=== PATIENT | female | born 1975 | race Caucasian/White ===

== ENCOUNTER 2021-10-08 12:04 | Inpatient (IN) ==
--- NOTE | 2021-09-27 16:18 | PAT Medication Instructions ---
Medication Instructions Date of Service September 27, 2021 Home Medications aripiprazole 10 mg tablet (Abilify) 10 mg PO DAILY bisacodyl 10 mg rectal suppository 10 mg IN DAILY PRN bisacodyl 5 mg tablet,delayed release 10 mg PO DAILY PRN calcium carb-ergocalciferol (vit D2) 600 mg calcium-200 unit tablet 1 tab PO BID docusate sodium 100 mg tablet 100 mg PO BID famotidine 10 mg tablet 20 mg PO DAILY fluoxetine 10 mg tablet 10 mg PO DAILY lacosamide 100 mg tablet 100 mg PO BID magnesium hydroxide 400 mg/5 mL oral suspension (Milk of Magnesia) 30 ml PO DAILY PRN melatonin 3 mg tablet 3 mg PO HS mirtazapine 7.5 mg tablet 7.5 mg PO HS omeprazole 20 mg tablet,delayed release 20 mg PO QAM ondansetron HCl 4 mg tablet 4 mg PO Q6H PRN polyethylene glycol 3350 17 gram/dose oral powder (Miralax) 17 g PO DAILY sennosides 8.6 mg-docusate sodium 50 mg tablet (Senna-S) 1 tab-cap PO BID Continue as directed aripiprazole 10 mg tablet (Abilify) 10 mg PO DAILY famotidine 10 mg tablet 20 mg PO DAILY fluoxetine 10 mg tablet 10 mg PO DAILY ondansetron HCl 4 mg tablet 4 mg PO Q6H PRN(if needed) DO NOT take the morning of surgery bisacodyl 10 mg rectal suppository 10 mg IN DAILY PRN bisacodyl 5 mg tablet,delayed release 10 mg PO DAILY PRN calcium carb-ergocalciferol (vit D2) 600 mg calcium-200 unit tablet 1 tab PO BID docusate sodium 100 mg tablet 100 mg PO BID magnesium hydroxide 400 mg/5 mL oral suspension (Milk of Magnesia) 30 ml PO DAILY PRN polyethylene glycol 3350 17 gram/dose oral powder (Miralax) 17 g PO DAILY sennosides 8.6 mg-docusate sodium 50 mg tablet (Senna-S) 1 tab-cap PO BID Take morning of surgery With a small sip of water, OTHERWISE NOTHING TO EAT OR DRINK AFTER MIDNIGHT: lacosamide 100 mg tablet 100 mg PO BID omeprazole 20 mg tablet,delayed release 20 mg PO QAM Take evening before surgery calcium carb-ergocalciferol (vit D2) 600 mg calcium-200 unit tablet 1 tab PO BID docusate sodium 100 mg tablet 100 mg PO BID lacosamide 100 mg tablet 100 mg PO BID melatonin 3 mg tablet 3 mg PO HS mirtazapine 7.5 mg tablet 7.5 mg PO HS sennosides 8.6 mg-docusate sodium 50 mg tablet (Senna-S) 1 tab-cap PO BID Other Notes If you have any questions please call us at [phone] or [phone] or [phone] or [phone]
--- NOTE | 2021-10-03 13:23 | Anesthesiology Consultation ---
Date of Service October 03, 2021 Assessment & Plan (1) Encounter for pre-operative examination: - awaiting pre-op testing and attending provider pre-op note. - Significant transportation limitations, pt unable to keep PAT appt. Per Yara at long term facility they can obtain all pre-op testing including CBC with diff, BMP, UA with urine culture and sensitivity, EKG and 2 view CXR. She states they will obtain PCR COVID test 10/04/2021 which is sent out to [facility] and she states would be completed in time for surgery 10/08/2021. Reviewed with anesthesia team and if COVID is pending, will do rapid test am DOS. She advised patient has not been seen by attending provider recently and will set this up prior to surgery, aware we will need notation if chronic conditions are stable and if patient is acceptable risk to proceed with surgery. - COVID screening: Per manager assessment on 09/27/2021: Travel screen negative, no known COVID-19 positive contacts or current COVID-19 related symptoms in past 2 weeks. Patient vaccinated. Surgeon arranging preop COVID testing, scheduled 10/04/2021. Awaiting results. Chart Review Chart Review: Pending: Refer to Additional Notes / Consult section and Patient NOT seen in Pre Admission Testing History Surgery Operation Date: 10/08/21 14:20 Proposed Procedures p Cystoscopy, Ureteronephroscopy, Retrograde Pyelogram with possible Ureteral Dilation, Laser Destruction or Extraction of the Stone, Insertion or Exchange of Stent Catheter - Davy Tyler, DO Height/Weight Height: 5 ft 5 in Weight: 98.458 kg Allergies Allergy/AdvReac Type Severity Reaction Status Date / Time acetaminophen Allergy Unknown Unknown Verified 09/27/21 11:33 clindamycin Allergy Unknown Unknown Verified 09/27/21 11:33 Medications Home Medications Medication Instructions Recorded Confirmed Last Taken aripiprazole 10 mg tablet (Abilify) 10 mg PO DAILY 09/27/21 09/27/21 Unknown bisacodyl 10 mg rectal suppository 10 mg DC DAILY PRN 09/27/21 09/27/21 Unknown bisacodyl 5 mg tablet,delayed 10 mg PO DAILY PRN 09/27/21 09/27/21 Unknown release calcium carb-ergocalciferol (vit 1 tab PO BID 09/27/21 09/27/21 Unknown D2) 600 mg calcium-200 unit tablet docusate sodium 100 mg tablet 100 mg PO BID 09/27/21 09/27/21 Unknown famotidine 10 mg tablet 20 mg PO DAILY 09/27/21 09/27/21 Unknown fluoxetine 10 mg tablet 10 mg PO DAILY 09/27/21 09/27/21 Unknown lacosamide 100 mg tablet 100 mg PO BID 09/27/21 09/27/21 Unknown magnesium hydroxide 400 mg/5 mL 30 ml PO DAILY PRN 09/27/21 09/27/21 Unknown oral suspension (Milk of Magnesia) melatonin 3 mg tablet 3 mg PO HS 09/27/21 09/27/21 Unknown mirtazapine 7.5 mg tablet 7.5 mg PO HS 09/27/21 09/27/21 Unknown omeprazole 20 mg tablet,delayed 20 mg PO QAM 09/27/21 09/27/21 Unknown release ondansetron HCl 4 mg tablet 4 mg PO Q6H PRN 09/27/21 09/27/21 Unknown polyethylene glycol 3350 17 17 g PO DAILY 09/27/21 09/27/21 Unknown gram/dose oral powder (Miralax) sennosides 8.6 mg-docusate sodium 1 tab-cap PO BID 09/27/21 09/27/21 Unknown 50 mg tablet (Senna-S) Past Medical History Medical History Dysphagia GERD (gastroesophageal reflux disease) Hyperosmolality and hypernatremia Impulsiveness Insomnia Lack of coordination Major depressive disorder Morbid obesity Obstructive and reflux uropathy Other seizures Resides in [facility] facility [place] Past Family History Family History Other Family history unknown Past Surgical History Surgical History S/P cystoscopy with ureteral stent placement Social History Smoking Status: Unknown if ever smoked Testing Other Testing Abdomen and pelvis CT 10/02/2021 Lung bases: The heart is normal in size and without pericardial effusion. The lung bases are clear noting dependent atelectasis. Liver: The unenhanced liver is normal in size, contour, and attenuation. There is no intrahepatic biliary ductal dilatation. Gallbladder: There are calcified gallstones in the region of the gallbladder neck with no CT evidence of acute cholecystitis. Spleen: Normal in size and attenuation. There is a calcified splenic granuloma. Kidneys: The unenhanced kidneys demonstrate mild cortical atrophy and are without hydronephrosis. A right ureteral stent is in place. No calcifications are identified in the right ureter along the course of the stent. There is mild urothelial thickening of the right ureter with surrounding infiltration. There are least 2 tiny stones/fragments in the lower pole of the right kidney. There are at least 4 nonobstructing left renal calculi which measure up to 4 mm. No left ureteral stone is seen. There is no evidence of contour deforming renal mass lesion. A retroaortic left renal vein is incidentally noted. Abdominal vasculature: The abdominal aorta is normal in course and caliber noting scattered foci of atherosclerotic calcification. Bowel: There is no bowel obstruction. Mild fecal retention is seen throughout the colon. The appendix is well-visualized and normal. Pelvic viscera: The bladder is decompressed and grossly unremarkable. The uterus and adnexa are normal as visualized. Skeletal structures: The skeletal structures are osteopenic. There is mild lumbosacral spondylosis. No lytic or blastic lesions are seen. IMPRESSION: 1. A right ureteral stent is in place. No calcifications are seen along the course of the stent and there is no right-sided hydronephrosis. 2. Bilateral nephrolithiasis as above. 3. Urothelial thickening of the right ureter with mild surrounding infiltration is nonspecific and likely related to the presence of an indwelling stent. Correlate with clinical findings and urinalysis. 4. Cholelithiasis. 5. Additional findings as above.
[~2021-10-08 12:04] MED LIST: CIPROFLOXACIN / D5W 400 MG/200 ML BAG IV SCH; LR 15ML/HR IV SCH
--- NOTE | 2021-10-08 12:15 | History & Physical Bridge Note ---
Date of Service October 08, 2021 History & Physical Bridge Note I have examined the patient, reviewed the History & Physical and in the interval since the performance of the History & Physical I have noted the following changes of clinical significance: no changes noted
[2021-10-08 13:24] LABS: Pregnancy Test, Serum Negative (Negative)
--- NOTE | 2021-10-08 14:21 | Electrocardiogram Report ---
Test Reason : Blood Pressure : / mmHG Vent. Rate : 111 BPM Atrial Rate : 111 BPM P-R Int : 128 ms QRS Dur : 072 ms QT Int : 348 ms P-R-T Axes : 009 -15 027 degrees QTc Int : 473 ms Sinus tachycardia Nonspecific ST abnormality No previous ECGs available Confirmed by Darien Rasmussen ([id number]) on 10/08/2021 2:20:45 PM Referred By: Davy Tyler Confirmed By:Mookie Rasmussen
[2021-10-08] MEDS ORDERED: fentaNYL citrate 100 MCG/2 ML VIAL ONE (14:29)
[2021-10-08] MEDS ORDERED: PROPOFOL IV EMULSION 10 MG/ML 20 ML VIAL IV ONE (14:32)
[2021-10-08] MEDS ORDERED: ONDANSETRON INJ 2 MG/ML 2 ML VIAL ONE ×2 (14:32→15:20)
[2021-10-08] MEDS ORDERED: KETOROLAC TROMETHAMINE 15 MG/ML VIAL IV PRN (15:15)
[2021-10-08] MEDS ORDERED: HYDROmorphone INJ 1 MG/ML SYRINGE IV PRN (15:15)
[2021-10-08] MEDS ORDERED: PHENAZOPYRIDINE HCL 200 MG TAB PO PRN (15:15)
[2021-10-08] MEDS ORDERED: ONDANSETRON INJ 2 MG/ML 2 ML VIAL IV PRN ×2 (15:15)
[2021-10-08] MEDS ORDERED: fentaNYL citrate 100 MCG/2 ML VIAL IV PRN (15:15)
[2021-10-08] MEDS ORDERED: ePHEDrine sulfate 50 MG/ML AMP IV PRN (15:15)
[2021-10-08] MEDS ORDERED: ATROPINE SULFATE 0.1 MG/ML 10ML SYR IV PRN (15:15)
[2021-10-08] MEDS ORDERED: oxyCODONE HCL IR 5 MG TAB (IMMEDIATE RELEASE) PO PRN (15:15)
[2021-10-08] MEDS ORDERED: bisacodyL 5 MG TABEC PO PRN (15:21)
[2021-10-08] MEDS ORDERED: bisacodyL 10 MG SUPP PR PRN (15:21)
[2021-10-08] MEDS ORDERED: MAGNESIUM HYDROXIDE SUSP 30 ML UDC PO PRN (15:21)
[2021-10-08] MEDS ORDERED: ONDANSETRON 4 MG OD TAB PO PRN (15:35)
[2021-10-08] MEDS ORDERED: ceFAZolin 330 MG/ML 1 GM VIAL ONE (15:50)
[2021-10-08] MEDS ORDERED: ceFAZolin 2000MG 2,000 MG/15 ML SYR IV ONE (16:00)
[2021-10-08] MEDS ORDERED: DIATRIZOATE MEGLUMINE 30% 100ML VIAL INSTIL PRN (16:02)
--- NOTE | 2021-10-08 16:02 | Operative Report ---
PG Post Operative Report Pre & Post Diagnosis Obstructing Stone Right Same Operation Date: 10/08/21 14:20 <No data on this case meets the specified criteria> I identified the patient and participated in the time-out.: Yes Procedure Operation Date: 10/08/21 14:20 Actual Procedures p Cystoscopy, Right Retrograde Pyelogram , Extraction of encrusted right ureteral stent, and Right Ureteral Stent Insertion (Not Applicable) - Davy Tyler, Surgeon Davy Tyler, II, DO Test Man None Estimated Blood Loss 1 Findings Consistent with Post-Op Diagnosis Severely calcified stent on right. Stone in bladder destroyed and removed. R etained stent removed. Urine from pelvis was aspirated. New Stent placed in good position. Specimens Urine right renal pelvis Drains 6 Fr x 24 Anesthesia Type MAC Complications none Disposition Disposition: Recovery Room Indications Patient with obstruction. Was to have stone treatment with retained stent, however patient became increasingly ill throughout day and developed early signs of pyelonephritis and SIRS. Risks and benefits discussed at length. Description of Procedure Patient was consented and brought back to the operating room. Patient was placed under anesthesia in the supine position and moved to the dorsal lithotomy position. Patient was prepped and draped in the regular sterile fashion. A time out was completed. A 30degree Cystoscope was placed into the bladder and the entire bladder was examined. The UO's were identified. The calcified stent was assessed. The grasper was used to destroy the encrusted stone and the debris was irrigated. The stent was then grasped and partially removed. The UO was cannulized with a catheter and a wire was placed. The stent was then fully removed and the catheter placed into the renal pelvis. Urine was aspirated and sent for culture. At this point, a retrograde pyelogram was completed. A wire was then placed. With the wire in place, a 6 Fr Double J stent was placed. It was confirmed with fluoroscopy. With the stent in place, the bladder was emptied. The scope was removed. The patient was cleaned, aroused from anesthesia, and transferred to the pacu in stable condition having tolerated the procedure well with no complications. I was present and participated in all aspects of the procedure. The patient will be monitored in the PACU until transferred. Plan to observe patient overnight due to concern about preoperative illness with retained stent and development of pyelonephritis. Will likely need stone treatment once recovers from acute issue. I attest to the content of the Intraoperative Record and any orders documented therein. Any exceptions are noted below.
--- NOTE | 2021-10-08 16:08 | Fluoroscopy Report ---
FL retrograde includes kub CLINICAL HISTORY: RT CYSTO, STENT TECHNIQUE: 6 views were obtained with the C-arm in the OR with the above procedure. Total fluoroscopy time was 32.4 seconds. Total skin dose was 9.42 mGy. Comparison: Comparison is made to CT abdomen pelvis 10/02/2021 FINDINGS/IMPRESSION: Intraoperative images were obtained of right cystogram and stent placement Please correlate with intraoperative fluoroscopy and operative report. ACT 112: Negative or not required by law. Electronically signed by: Brennen Morales M.D. 10/08/2021 4:06 PM
--- NOTE | 2021-10-08 16:57 | Anesthesiology Progress Note ---
Date of Service October 08, 2021 Anesthesia Post Procedure Vital Signs Vital Signs: Temp Pulse Pulse Resp BP BP Pulse Ox 10/08/21 16:50 112 H 15 135/109 H 91 10/08/21 16:40 109 H 14 124/104 H 96 10/08/21 16:30 105 H 16 139/101 H 94 10/08/21 16:20 104 H 14 161/95 H 96 10/08/21 16:11 36.5 C 102 H 15 137/103 H 96 10/08/21 12:27 37.7 C H 115 H 20 142/108 H 94 Transfer of Care Handoff Completed per policy Notes Mental Status: alert / awake / arousable Patient Amnestic to Procedure: Yes Nausea / Vomiting: adequately controlled Pain: adequately controlled Airway Patency, RR, SpO2: stable & adequate BP & HR: stable & adequate Hydration State: stable & adequate Anesthetic Complications: no major complications apparent and Pt Satisfied with anesthetic care Notes: The patient is at her preoperative baseline. She is awake and following commands but is unable to talk.
[2021-10-08 17:02] LABS: Appearance Urine Cloudy (Clear); Bacteria Urine Automated Negative (Negative); Bilirubin Urine Negative (Negative); Blood Urine 3+ (Negative); Color Urine Yellow; Epithelial Cell Urine Auto >30 /lpf (0-5); Glucose Urine UA Trace (Negative); Ketones Urine Trace (Negative); Leukocyte Esterase Urine Trace (Negative); Nitrite Urine Negative (Negative); Protein Urine 3+ (Negative); RBC Urine Automated >30 /hpf (0-4); Specific Gravity Urine > 1.045 (1.000-1.030); Urobilinogen Urine Negative (Negative); pH Urine 5.5 (4.5-7.5)
[2021-10-08 17:05] LABS: Base Excess VBG 0.1 mEq/L; pH VBG 7.37 (7.36-7.41)
[2021-10-08 17:21] LABS: Cast Urine Automated 0 /lpf (0-5)
--- NOTE | 2021-10-08 17:35 | Hospitalist Consultation ---
Date of Consultation October 08, 2021 Assessment & Plan (1) Sepsis: Nayely is a 46-year-old female with a history of brain cancer with surgical excision from behind the right eye in [place] in 2000 unclear type, seizure disorder with last seizure in 2010 controlled on lacosamide, and GERD who presented for outpatient stent exchange. She initially had presented to an outside facility with severe sepsis UTI and pyelonephritis, and was found to have an obstructing right ureteral calculus. She presented to [facility] for stent exchange. Perioperatively she became increasingly tachycardic, and did have a fever following procedure. Stent was encrusted on removal, likely infected and obstructed prior with patient progressing to sepsis/pyelonephritis. She had an outpatient UA which was infected appearing, per verbal report culture sensitivity was for Cipro sensitive E. coli. Attempted to verify this record, ER unable to log into [employer] system since patient was a OR admit in OR did not have access to [employer] records. We will continue to attempt to obtain records. Sepsis, suspected UTI? Pyelonephritis - WBC 12.53, tachy 100-115, 144/98, RR 13, febrile post procedure Patient with infected appearing preop UA. Records with difficulty obtaining as noted above. By report ciprofloxacin sensitive E. coli. Intraoperative urine cultures pending 37.7 following stent exchange, afebrile on reevaluation Received 500 cc intraoperative fluid, additional 1L bolus postop (1.5 total, 30cc/kg *95kg ~3L and pt remains tachycardic with clear lungs) +1 LR ordered Continue LR 120 cc/h, no history of heart failure per records review Cipro 400 mg every 12 hours initially ordered based on cultures preop verbal culture report. Patient does have borderline QT prolongation, and without cultures available to review and septic presentation will expand to Zosyn temporarily AB.37, 45, 74, 26. No signs of hypercapnic or hypoxic respiratory failure contributing to excess somnolence. Preop EKG normal sinus rhythm, old nonspecific changes without territorial ST changes Negative COVID preop Blood cultures pending Lactate normal (2) Other seizures: Collateral obtained from patient's mother. Reportedly had seizures post brain tumor resection Last seizure 2010 Well-controlled on lacosamide. Continue lacosamide 100 mg p.o. twice daily (3) GERD (gastroesophageal reflux disease): Protonix 40 twice daily Pepcid 20 mg p.o. daily (4) Major depressive disorder: Continue Remeron 7.5 mg p.o. nightly Continue aripiprazole 10 mg p.o. daily Needs melatonin 3 mg p.o. nightly for sleeppreop EKG QTC 473 (5) Hyperosmolality and hypernatremia: Sodium 149 4/15 preop (6) Right ureteral calculus: Management as above, stent management per urology DVT prophylaxis: SCDs, Lovenox after 24 hours Diet: N.p.o., septic with extreme somnolence postop CODE STATUS: DNR/DNI, confirmed with patient's mother, and advanced directive on file, and assented at bedside although patient cognitive status is reduced postop Dispo: PCU, septic with history of seizures postprocedural History of Present Illness Attending Physician: Davy Tyler, II, DO History of Present Illness Nayely is a 46-year-old female with a history of brain cancer with surgical excision from behind the right eye in [place] in 2000 unclear type, seizure disorder with last seizure in 2010 controlled on lacosamide, and GERD who presented for outpatient stent exchange. She initially had presented to an outside facility with severe sepsis UTI and pyelonephritis, and was found to have an obstructing right ureteral calculus. She presented to [facility] for stent exchange. Perioperatively she became increasingly tachycardic, and did have a fever following procedure. Stent was encrusted on removal, likely infected and obstructed prior with patient progressing to sepsis/pyelonephritis. She had an outpatient UA which was infected appearing, per verbal report culture sensitivity was for Cipro sensitive E. coli. Attempted to verify this record, ER unable to log into [employer] system since patient was a OR admit in OR did not have access to [employer] records. We will continue to attempt to obtain records. Patient is sedated at bedside evaluation and in PACU recovery. She does open her eyes on command, squeezes right and left hand on command, wiggles right and left toe on command. Does not answer questions verbally, but does give appropriate head nods and head shake to some questions. Denies fever, chills. Endorses belly pain. Endorses weakness. Full subjective is limited by cognitive status/recovery. Patient received 400 cc of fluid intraoperatively per PACU nursing report. Patient is tachycardic to low 100s/101, 141/97, and respiring normally at bedside. Sinus tachycardia. Minimal blood loss, no complications during procedure. Collateral is collected from patient's mother Lashawn at [id number][birth year]10/21/2003. Patient's mother reports patient is a resident of [place]. She has an advanced directive and is DNR/DNI, and did discuss this and confirm this prior to surgery. At baseline Candy is verbal and able to communicate. Her mother confirms brain cancer with surgical incision in 2000 [place], and seizure with last seizure in 2010. Is not able to give a complete medication reconciliation, but believes what we have on file is correct. Reports that Nayely has no known medication allergies. Allergies Allergy/AdvReac Type Severity Reaction Status Date / Time acetaminophen Allergy Unknown Unknown Verified 10/08/21 12:46 clindamycin Allergy Unknown Unknown Verified 10/08/21 12:46 Home Medications Medication Instructions Recorded Confirmed Type aripiprazole 10 mg tablet (Abilify) 10 mg PO DAILY 09/27/21 10/08/21 History bisacodyl 10 mg rectal suppository 10 mg [place] DAILY PRN 09/27/21 10/08/21 History bisacodyl 5 mg tablet,delayed 10 mg PO DAILY PRN 09/27/21 10/08/21 History release calcium carb-ergocalciferol (vit 1 tab PO BID 09/27/21 10/08/21 History D2) 600 mg calcium-200 unit tablet docusate sodium 100 mg tablet 100 mg PO BID 09/27/21 10/08/21 History famotidine 10 mg tablet 20 mg PO DAILY 09/27/21 10/08/21 History fluoxetine 10 mg tablet 10 mg PO DAILY 09/27/21 10/08/21 History lacosamide 100 mg tablet 100 mg PO BID 09/27/21 10/08/21 History magnesium hydroxide 400 mg/5 mL 30 ml PO DAILY PRN 09/27/21 10/08/21 History oral suspension (Milk of Magnesia) melatonin 3 mg tablet 3 mg PO HS 09/27/21 10/08/21 History mirtazapine 7.5 mg tablet 7.5 mg PO HS 09/27/21 10/08/21 History omeprazole 20 mg tablet,delayed 20 mg PO QAM 09/27/21 10/08/21 History release ondansetron HCl 4 mg tablet 4 mg PO Q6H PRN 09/27/21 10/08/21 History polyethylene glycol 3350 17 17 g PO DAILY 09/27/21 10/08/21 History gram/dose oral powder (Miralax) sennosides 8.6 mg-docusate sodium 1 tab-cap PO BID 09/27/21 10/08/21 History 50 mg tablet (Senna-S) cephalexin 500 mg capsule 500 mg PO BID 3 Days #6 cap 10/08/21 Rx oxycodone-acetaminophen 7.5 mg-325 1 tab PO Q8H PRN #7 tab 10/08/21 Rx mg tablet (Percocet) phenazopyridine 200 mg tablet 200 mg PO Q8H PRN #10 tab 10/08/21 Rx (Pyridium) tamsulosin 0.4 mg capsule 0.4 mg PO HS #30 cap 10/08/21 10/08/21 Rx Patient History Medical History Brain cancer no treatment per Yara nursing supervisor metal fabricating at [facility] d/t advanced directive status Dysphagia GERD (gastroesophageal reflux disease) Hyperosmolality and hypernatremia Impulsiveness Insomnia Lack of coordination Major depressive disorder Morbid obesity Obstructive and reflux uropathy Other seizures Resides in care home facility [place] Surgical History S/P cystoscopy with ureteral stent placement Family History Other Family history unknown Social History Smoking Status: Unknown if ever smoked Second Hand Exposure: No; Do You Dip or Chew Tobacco: No; Tobacco Cessation Education Requested by Patient: No Hx Alcohol Use: No Hx Substance Use: No Preferred Language: Serbian Communication Ability: Impaired Communication Ability Comment: baseline unsure due to infection and nonverbal state Psychologist Social Required: No Beliefs That Will Affect Care: None marital status: Current Living Situation: Correction How many Children do You have: 0 Feels Safe at Home: Yes Assistive Devices: None Assistive Devices Comment: unsure what all devices pt needs--resides at [place] Review of Systems Review of Systems: Unobtainable due to cognitive status and Unobtainable due to reduced consciousness Physical Exam Physical Exam: General: Somnolent. Nods head appropriately to questions NAD. Cooperative. HEENT: Atraumatic, normocephalic. Tracks with eyes without nystagmus. Hearing grossly intact. Pupils reactive to light bilaterally. Pulm: Diminished/distant, but grossly intact without wheezes/rales through all caal. Symmetrical chest rise. No increase in work of breathing. No respiratory distress. Cardiac: Ocular, tachycardic, -mrg. Radial pulses intact and symmetrical. Abdominal: Nontender, nondistended, soft. BS present. For umbilical approximately 3 cm round pannus skin wound/ulcer. No overlying erythema, discharge or purulence. Extremities: Warm, moist. Wiggles toes bilaterally, weak bilateral retail customer service specialist on command. Sensation soft touch intact in hands. Strength/sensation exam somewhat limited by patient's sedation postoperatively. Results & Data Results & Data ([facility]) Vital Signs (Past 12 Hours) Vital Signs Temp Pulse Pulse Resp BP BP Pulse Ox 10/08/21 17:10 101 H 16 141/97 H 94 10/08/21 17:00 36.6 C 102 H 13 140/102 H 94 10/08/21 16:50 112 H 15 135/109 H 91 10/08/21 16:40 109 H 14 124/104 H 96 10/08/21 16:30 105 H 16 139/101 H 94 10/08/21 16:20 104 H 14 161/95 H 96 10/08/21 16:11 36.5 C 102 H 15 137/103 H 96 10/08/21 12:27 37.7 C H 115 H 20 142/108 H 94 PG Care Time/CCT Total # of Minutes Spent Total Time Spent with Patient: Total time spent is greater than 50% in coordination of care (as documented) at patient's floor/unit and/or counseling patient: Coding Level of Care Code 50514 Inpt Consult Level 5 Diagnoses Sepsis A41.9 Other seizures G40.89 GERD (gastroesophageal reflux disease) K21.9 Major depressive disorder F32.9 Hyperosmolality and hypernatremia E87.0 Right ureteral calculus N20.1
[2021-10-08] MEDS ORDERED: PIPERACILL/TAZOBAC CONSULT ACTIVE PRN (17:41)
[2021-10-08] MEDS ORDERED: LACTATED RINGER'S 1,000 ML IV ONE (17:41)
[2021-10-08 17:42] LABS: Basophils # (auto) 0.06 K/uL (0-0.2); Basophils % (auto) 0.5 %; Eosinophils # (auto) 0.09 K/uL (0-0.5); Eosinophils % (auto) 0.7 %; Hematocrit (blood only) 53.4 % (37-47); Hemoglobin 16.1 g/dL (12.0-16.0); Immature Granulocytes # (auto) 0.05 K/uL (0.00-0.02); Immature Granulocytes % (auto) 0.4 %; Lymphocytes # (auto) 3.02 K/uL (1.2-3.4); Lymphocytes % (auto) 24.1 %; Mean Corpuscular Hemoglobin 26.7 pg (25-34); Mean Corpuscular Hgb Conc 30.1 g/dL (32-36); Mean Corpuscular Volume 88.7 fL (80-100); Mean Platelet Volume 11.3 fL (7.4-10.4); Monocytes # (auto) 1.37 K/uL (0.11-0.59); Monocytes % (auto) 10.9 %; Neutrophils # (auto) 7.94 K/uL (1.4-6.5); Neutrophils % (auto) 63.4 %; Platelet Count 326 K/uL (130-400); RDW Standard Deviation 48.3 fL (36.4-46.3); Red Blood Count 6.02 M/uL (4.2-5.4); White Blood Count 12.53 K/uL (4.8-10.8)
[2021-10-08] MEDS ORDERED: PIPERACILLIN/TAZOBACTAM 4.5 GM in DEXTROSE 5% 100 ML IV SCH (17:45)
[2021-10-08] MEDS ORDERED: PIPERACILLIN/TAZOBACTAM 3.375 GM in DEXTROSE 5% 100 ML IV ONE (18:00)
[2021-10-08] MEDS: D5W AND 1/2NSS + 20MEQ KCL 20 MEQ/1,000 ML BAG IV SCH (20:05)
[2021-10-08 20:25] LABS: Albumin Globulin Ratio 1.3 (0.9-2); BUN Creatinine Ratio 23.5 (10-20); Bilirubin,Total 0.7 mg/dl (0.2-1.0); Calcium 9.8 mg/dl (8.5-10.1); Creatinine Clr Calc Pharmacy 57.3 ml/min; Est GFR (African American) 53.2 ml/min; Est GFR (Non-African American) 45.9 ml/min; Globulin 3.1 gm/dl (2.5-4.0); Potassium 3.6 mmol/L (3.5-5.1); Total Protein 7.1 gm/dl (6.0-8.3)
[2021-10-08] MEDS ORDERED: LACOSAMIDE 50 MG TABLET PO SCH (21:00)
[2021-10-08] MEDS ORDERED: DOCUSATE SODIUM 100 MG CAP PO SCH (21:00)
[2021-10-08] MEDS: CALCIUM 600MG + VIT D 400 IU TAB PO SCH (22:13)
[2021-10-08] MEDS: DOCUSATE SODIUM 100 MG CAP PO SCH (22:13)
[2021-10-08] MEDS: DOCUSATE SODIUM/SENNA 50/8.6MG TAB PO SCH (22:13)
[2021-10-08] MEDS: MELATONIN 3 MG TAB PO SCH (22:13)
[2021-10-08] MEDS: MIRTAZAPINE TAB 15 MG TAB PO SCH (22:14)
[2021-10-08] MEDS: LACOSAMIDE 100 MG in SODIUM CHLORIDE 0.9% 50 ML IV SCH (22:14)
[2021-10-09] MEDS: PIPERACILLIN/TAZOBACTAM 3.375 GM in DEXTROSE 5% 100 ML IV SCH ×3 (02:35→17:18)
[2021-10-09] MEDS ORDERED: CIPROFLOXACIN / D5W 400 MG/200 ML BAG IV SCH (03:30)
--- NOTE | 2021-10-09 05:29 | Communication Note ---
Date of Service: October 09, 2021 Failed dysphagia screening overnight (aphasia). Continued strict NPO. Reviewed meds list. Changed home lacosamide (seizure medication) from PO to IV at equ ivalent/same dose.
[2021-10-09 07:02] LABS: Basophils # (auto) 0.04 K/uL (0-0.2); Basophils % (auto) 0.4 %; Eosinophils # (auto) 0.32 K/uL (0-0.5); Eosinophils % (auto) 3.2 %; Hematocrit (blood only) 48.4 % (37-47); Hemoglobin 14.1 g/dL (12.0-16.0); Immature Granulocytes # (auto) 0.02 K/uL (0.00-0.02); Immature Granulocytes % (auto) 0.2 %; Lymphocytes # (auto) 2.34 K/uL (1.2-3.4); Lymphocytes % (auto) 23.6 %; Mean Corpuscular Hemoglobin 26.5 pg (25-34); Mean Corpuscular Hgb Conc 29.1 g/dL (32-36); Mean Platelet Volume 11.3 fL (7.4-10.4); Monocytes # (auto) 0.64 K/uL (0.11-0.59); Monocytes % (auto) 6.5 %; Neutrophils # (auto) 6.56 K/uL (1.4-6.5); Neutrophils % (auto) 66.1 %; Platelet Count 238 K/uL (130-400); RDW Coefficient of Variation 15.1 % (11.5-14.5); RDW Standard Deviation 50.2 fL (36.4-46.3); Red Blood Count 5.32 M/uL (4.2-5.4); White Blood Count 9.92 K/uL (4.8-10.8)
[2021-10-09 07:42] LABS: BUN Creatinine Ratio 21.9 (10-20); Calcium 9.4 mg/dl (8.5-10.1); Creatinine Clr Calc Pharmacy 62.2 ml/min; Est GFR (African American) 57.2 ml/min; Est GFR (Non-African American) 49.4 ml/min; Potassium 4.1 mmol/L (3.5-5.1)
--- NOTE | 2021-10-09 08:16 | Urology Progress Note ---
Date of Service October 09, 2021 Assessment & Plan (1) Sepsis: (2) Right ureteral calculus: (3) S/P ureteral stent placement: Plan: 46yo F who is s/p right ureteral stent exchange and was admitted postoperatively due to concern for developing pyelonephritis and early sepsis - POD #1 s/p Cystoscopy, Right Retrograde Pyelogram, Extraction of encrusted right ureteral stent, and Right Ureteral Stent Insertion with Dr. Tyler - Pt admitted postoperatively due to concern for developing pyelonephritis/sepsis - Hospital team consulted due to postoperative state, comorbidities - Appreciate recommendations. - Afebrile at present - Tmax 37.7 yesterday 10/08 at 1227 - Labs reviewed - Wbc 9.92, Hgb 14.1, Creatinine 1.28 - Urine, intraop, and blood cultures pending - On IV Zosyn - Horn catheter intact, draining clear yellow urine. - Home lacosamide changed from PO to IV per hospital medicine. - Pt failed dysphagia screening overnight, continues on strict NPO. Plan- - Maintain Horn catheter, continue to monitor urine output. - Continue supportive care and antibiotic therapy, follow cultures and narrow as appropriate. - Continue care per hospital medicine for management of chronic conditions. - Discussed with hospital team, appreciate assistance. Admission and Anticipated Discharge Date Admission Date: October 08, 2021 Subjective Postop day #1 s/p right stent exchange Pt examined at bedside this AM. No acute distress. On 3L O2 via NC. Asleep on arrival, awakened to verbal stimuli. Answered some questions with a head nod/shake, did not answer verbally. Followed commands to open eyes, squeeze hands, and wiggle toes. Horn catheter intact, draining clear yellow urine. Urine output overnight -200ml Denied abdominal/flank pain. No fevers overnight. Per chart review- Pt failed dysphagia screening overnight, continues on strict NPO. Home lacosamide changed from PO to IV at equivalent/same dose per medicine team. Review of Systems Review of Systems: Unobtainable due to cognitive status Physical Exam Constitutional: no acute distress Somnolent Respiratory: no respiratory distress on 3L O2 via NC Gastrointestinal (Abdomen): Inspection/Auscultation: abdomen normal to inspection Percussion/Palpation: abdomen soft; abdomen nontender Skin: Warm and dry Neurologic: Awakened to verbal stimuli. Answered some questions with a head nod/shake, did not answer verbally. Followed commands to open eyes, squeeze hands, and wiggle toes. Genitourinary: Horn catheter intact, draining clear yellow urine Results & Data ([facility]) Vital Signs (Past 12 Hours) Vital Signs Temp Pulse Pulse Resp BP Pulse Ox 10/09/21 07:53 76 10/09/21 07:26 36.6 C 75 18 108/74 97 10/09/21 03:33 36.4 C L 75 18 103/72 99 10/08/21 23:53 36.3 C L 87 18 111/79 99 10/08/21 22:20 86 PG Care Time/CCT Total # of Minutes Spent Total Time Spent with Patient: Total time spent is greater than 50% in coordination of care (as documented) at patient's floor/unit and/or counseling patient: Coding Level of Care Code 65002 Subseq Hosp Care Lvl 2 Diagnoses Sepsis A41.9 Right ureteral calculus N20.1 S/P ureteral stent placement Z96.0
[2021-10-09] MEDS: LACOSAMIDE 100 MG in SODIUM CHLORIDE 0.9% 50 ML IV SCH ×2 (08:19→21:35)
[2021-10-09] MEDS: ARIPiprazole 10 MG TAB PO SCH (08:26)
[2021-10-09] MEDS: FLUoxetine HCL 10 MG CAP PO SCH (08:27)
[2021-10-09] MEDS: PANTOprazole 40 MG TAB PO SCH (08:27)
[2021-10-09] MEDS: POLYETHYLENE (MIRALAX) 17 GM PACK PO SCH (08:27)
[2021-10-09] MEDS: CALCIUM 600MG + VIT D 400 IU TAB PO SCH ×2 (08:27→19:24)
[2021-10-09] MEDS: FAMOTIDINE 20 MG TAB PO SCH (08:27)
[2021-10-09] MEDS: DOCUSATE SODIUM/SENNA 50/8.6MG TAB PO SCH ×2 (08:27→19:24)
[2021-10-09] MEDS: DOCUSATE SODIUM 100 MG CAP PO SCH ×2 (08:27→19:24)
[2021-10-09] MEDS: D5W AND 1/2NSS + 20MEQ KCL 20 MEQ/1,000 ML BAG IV SCH ×2 (10:31→21:35)
--- NOTE | 2021-10-09 12:26 | Hospitalist Progress Note ---
Date of Service October 09, 2021 Assessment & Plan (1) Sepsis: Plan: Nayely is a 46-year-old female with a history of brain cancer with surgical excision from behind the right eye in [place] in 2000 unclear type, seizure disorder with last seizure in 2010 controlled on lacosamide, and GERD who presented for outpatient stent exchange. She initially had presented to an outside facility with severe sepsis UTI and pyelonephritis, and was found to have an obstructing right ureteral calculus. She presented to [facility] for stent exchange. Perioperatively she became increasingly tachycardic, and did have a fever following procedure. Stent was encrusted on removal, likely infected and obstructed prior with patient progressing to sepsis/pyelonephritis. She had an outpatient UA which was infected appearing, per verbal report culture sensitivity was for Cipro sensitive E. coli. Attempted to verify this record, ER unable to log into [employer] system since patient was a OR admit in OR did not have access to [employer] records. We will continue to attempt to obtain records. Sepsis, suspected UTI? Pyelonephritis - WBC 12.53, tachy 100-115, 144/98, RR 13, febrile post procedureleukocytosis normalized, no recurrent fevers, creatinine 1.28 from 1.36 Patient with infected appearing preop UA. Records with difficulty obtaining as noted above. By report ciprofloxacin sensitive E. coli. Intraoperative urine cultures pending 37.7 following stent exchange, afebrile on reevaluation Received 500 cc intraoperative fluid, additional 1L bolus postop (1.5 total, 30cc/kg *95kg ~3L and pt remains tachycardic with clear lungs) +1 LR ordered Continue IVFM, no history of heart failure per records review Cipro 400 mg every 12 hours initially ordered based on cultures preop verbal culture report. Patient does have borderline QT prolongation, and without cultures available to review and septic presentation will expand to Zosyn Pending culture results, narrow as appropriate AB.37, 45, 74, 26 postoperatively no signs of hypercapnic or hypoxic respiratory failure contributing to excess somnolence. Preop EKG normal sinus rhythm, old nonspecific changes without territorial ST changes Negative COVID preop Lactate normal Afebrile this morning Failed bedside swallow, continue to follow for global improvement with treatment of infection and hydration as above (2) Other seizures: Plan: Collateral obtained from patient's mother. Reportedly had seizures post brain tumor resection Last seizure 2010 Well-controlled on lacosamide. Continue lacosamide 100 mg p.o. twice daily. Converted to IV while strict n.p.o. 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 Continue to follow, essential meds converted to IV (3) GERD (gastroesophageal reflux disease): Plan: Protonix 40 twice daily Pepcid 20 mg p.o. daily (4) Major depressive disorder: Plan: Continue Remeron 7.5 mg p.o. nightly Continue aripiprazole 10 mg p.o. daily melatonin 3 mg p.o. nightly for sleep preop EKG QTC 473 (5) Hyperosmolality and hypernatremia: Plan: Sodium 149 4/15 preop (6) Right ureteral calculus: Plan: Management as above, stent management per urology Plan: DVT prophylaxis: SCDs, Lovenox after 24 hours Diet: N.p.o CODE STATUS: DNR/DNI, confirmed with patient's mother, and advanced directive on file, and assented at bedside noting patient cognitive status is reduced Dispo: PCU, Admission and Anticipated Discharge Date Admission Date: October 08, 2021 Subjective Patient seen at bedside this morning. Unclear baseline, but reportedly patient is intermittently verbal and is able to nod and shake head appropriately to answer questions. Is somewhat sedated following lacosamide IV. No distress at bedside. Does open eyes, squeeze hand, wiggle toes on command. Does not flex the hip on command. When asked where she is does reply hospital, does not answer other questions including name or date verbally. Shakes head no when asked if she is having pain, chest pressure, fevers, or chills. Exam limited by cognitive status. Review of Systems Review of Systems: Unobtainable due to cognitive status Physical Exam Physical Exam: General: Somnolent. Nods head appropriately to questions NAD. Cooperative. HEENT: Atraumatic, normocephalic. Eye tracking intact. Hearing grossly intact. Pupils reactive to light bilaterally. Pulm: Diminished/distant, without wheezes/rales through all caal. Symmetrical chest rise. No increase in work of breathing. No respiratory distress. Cardiac: RRR, -mrg. Radial pulses intact and symmetrical. Abdominal: Nontender, nondistended, soft. BS present. For umbilical approximately 3 cm round pannus skin wound/ulcer. No overlying erythema, discharge or purulence. Extremities: Warm, moist. Wiggles toes bilaterally, weak bilateral compatibility test engineer on command. Sensation soft touch intact in hands. Nods head to indicate intact sensation to soft touch in hands and feet Results & Data Results & Data ([facility]) Vital Signs (Past 12 Hours) Vital Signs Temp Pulse Pulse Resp BP Pulse Ox 10/09/21 11:30 36.7 C 70 19 101/70 100 10/09/21 07:53 76 10/09/21 07:26 36.6 C 75 18 108/74 97 10/09/21 03:33 36.4 C L 75 18 103/72 99 PG Care Time/CCT Total # of Minutes Spent Total Time Spent with Patient: Total time spent is greater than 50% in coordination of care (as documented) at patient's floor/unit and/or counseling patient: Coding Level of Care Code 03425 Subseq Hosp Care Lvl 3 Diagnoses Sepsis A41.9 Other seizures G40.89 GERD (gastroesophageal reflux disease) K21.9 Major depressive disorder F32.9 Hyperosmolality and hypernatremia E87.0 Right ureteral calculus N20.1
[2021-10-09] MEDS: MoRPHine SULFATE 2 MG/ML CARP IV PRN (17:16)
[2021-10-09] MEDS: MELATONIN 3 MG TAB PO SCH (19:25)
[2021-10-09] MEDS: MIRTAZAPINE TAB 15 MG TAB PO SCH (19:25)
[2021-10-10] MEDS: PIPERACILLIN/TAZOBACTAM 3.375 GM in DEXTROSE 5% 100 ML IV SCH ×3 (02:29→17:49)
--- NOTE | 2021-10-10 08:51 | Hospitalist Progress Note ---
Date of Service October 10, 2021 Assessment & Plan (1) Sepsis: Plan: Nayely is a 46-year-old female with a history of brain cancer with surgical excision from behind the right eye in [place] in 2000 unclear type, seizure disorder with last seizure in 2010 controlled on lacosamide, and GERD who presented for outpatient stent exchange. She initially had presented to an outside facility with severe sepsis UTI and pyelonephritis, and was found to have an obstructing right ureteral calculus. She presented to [facility] for stent exchange. Perioperatively she became increasingly tachycardic, and did have a fever following procedure. Stent was encrusted on removal, likely infected and obstructed prior with patient progressing to sepsis/pyelonephritis. She had an outpatient UA which was infected appearing, per verbal report culture sensitivity was for Cipro sensitive E. coli. Attempted to verify this record, ER unable to log into [employer] system since patient was a OR admit in OR did not have access to [employer] records. We will continue to attempt to obtain records. Sepsis, complicated UTI associated with ureteral stent Pyelonephritis -prehospital ciprofloxacin sensitive E. coli. Intraoperative urine cultures pending 3 stent exchange, afebrile on reevaluation on Zosyn therapy Negative COVID preop Lactate normal -speech therapy for swallowing (2) Other seizures: Plan: -histotical information obtained from patient's mother. Reportedly had seizures post brain tumor resection Last seizure 2010 Well-controlled on lacosamide. Continue lacosamide 100 mg p.o. twice daily. Converted to IV while strict n.p.o. Patient failed bedside swallow, reportedly able to swallow LAMINATION OPERATOR. Continue to follow, essential meds converted to IV (3) GERD (gastroesophageal reflux disease): Plan: Protonix 40 twice daily Pepcid 20 mg p.o. daily (4) Major depressive disorder: Plan: Continue Remeron 7.5 mg p.o. nightly Continue aripiprazole 10 mg p.o. daily melatonin 3 mg p.o. nightly for sleep preop EKG QTC 473 (5) Hyperosmolality and hypernatremia: Plan: Sodium 149 4/15 preop (6) Right ureteral calculus: Plan: Management as above, stent management per urology Plan: DVT prophylaxis: SCDs, Lovenox after 24 hours Diet: N.p.o CODE STATUS: DNR/DNI, confirmed with patient's mother, and advanced directive on file, and assented at bedside noting patient cognitive status is reduced Dispo: PCU, Admission and Anticipated Discharge Date Admission Date: October 08, 2021 Subjective pt was able to awaken and converse with me cooperating but some times being dismissive. Review of Systems Review of Systems: Mild distress and fatigue systems are colored by her mental impairment from her craniotomy no headache, no visual changes Nursing has had some swallowing issues no chest pain, pressure or palpitations no shortness of breath, cough or wheezes no abdominal pain has resolved no focal joint pain or swelling no back pain, CVA tenderness or radicular pain no bruising, bleeding or rashes Physical Exam Physical Exam: The patient appeared well nourished Vital signs as documented. Head exam is normocephalic atraumatic, dental carries limit chewing Neck is without JVD, thyromegaly, or carotid bruits. Lungs are clear to auscultation, no focal loss of breath sounds Cardiac exam, Rhythm is regular.. No murmurs, rubs or gallops. Abdominal exam reveals normal bowel sounds, soft non tender, no masses Extremities are nonedematous and both pedal pulses are present Neurologic exam is alert and orientedx2, Skin is without bruises or rashes Results & Data Results & Data ([facility]) Vital Signs (Past 12 Hours) Vital Signs Temp Pulse Resp BP Pulse Ox 10/10/21 07:19 97.7 F 65 17 110/67 100 10/10/21 03:57 98.1 F 61 20 101/69 100 10/09/21 22:49 97.3 F L 72 18 109/77 99 PG Care Time/CCT Total # of Minutes Spent Total Time Spent with Patient: Total time spent is greater than 50% in coordination of care (as documented) at patient's floor/unit and/or counseling patient: Coding Level of Care Code 52364 Subseq Hosp Care Lvl 2 Diagnoses Sepsis A41.9 Other seizures G40.89 GERD (gastroesophageal reflux disease) K21.9 Major depressive disorder F32.9 Hyperosmolality and hypernatremia E87.0 Right ureteral calculus N20.1
[2021-10-10 09:22] LABS: Basophils # (auto) 0.02 K/uL (0-0.2); Basophils % (auto) 0.3 %; Eosinophils # (auto) 0.21 K/uL (0-0.5); Eosinophils % (auto) 3.4 %; Hematocrit (blood only) 41.8 % (37-47); Hemoglobin 12.3 g/dL (12.0-16.0); Immature Granulocytes # (auto) 0.01 K/uL (0.00-0.02); Immature Granulocytes % (auto) 0.2 %; Lymphocytes # (auto) 1.66 K/uL (1.2-3.4); Lymphocytes % (auto) 26.6 %; Mean Corpuscular Hemoglobin 26.6 pg (25-34); Mean Corpuscular Hgb Conc 29.4 g/dL (32-36); Mean Corpuscular Volume 90.5 fL (80-100); Mean Platelet Volume 11.6 fL (7.4-10.4); Monocytes # (auto) 0.57 K/uL (0.11-0.59); Monocytes % (auto) 9.1 %; Neutrophils # (auto) 3.76 K/uL (1.4-6.5); Neutrophils % (auto) 60.4 %; Platelet Count 153 K/uL (130-400); RDW Coefficient of Variation 14.8 % (11.5-14.5); RDW Standard Deviation 48.7 fL (36.4-46.3); Red Blood Count 4.62 M/uL (4.2-5.4); White Blood Count 6.23 K/uL (4.8-10.8)
[2021-10-10] MEDS: CALCIUM 600MG + VIT D 400 IU TAB PO SCH ×2 (09:42→20:35)
[2021-10-10] MEDS: FAMOTIDINE 20 MG TAB PO SCH (09:42)
[2021-10-10] MEDS: PANTOprazole 40 MG TAB PO SCH (09:42)
[2021-10-10] MEDS: FLUoxetine HCL 10 MG CAP PO SCH (09:42)
[2021-10-10] MEDS: ARIPiprazole 10 MG TAB PO SCH (09:43)
[2021-10-10] MEDS: DOCUSATE SODIUM 100 MG CAP PO SCH ×2 (09:47→20:35)
[2021-10-10] MEDS: DOCUSATE SODIUM/SENNA 50/8.6MG TAB PO SCH ×2 (09:47→20:35)
[2021-10-10] MEDS: POLYETHYLENE (MIRALAX) 17 GM PACK PO SCH (09:48)
[2021-10-10] MEDS: LACOSAMIDE 100 MG in SODIUM CHLORIDE 0.9% 50 ML IV SCH ×2 (09:50→22:13)
[2021-10-10 09:54] LABS: BUN Creatinine Ratio 17.5 (10-20); Calcium 8.7 mg/dl (8.5-10.1); Creatinine Clr Calc Pharmacy 71.7 ml/min; Est GFR (African American) 65.9 ml/min; Est GFR (Non-African American) 56.8 ml/min; Potassium 3.8 mmol/L (3.5-5.1)
[2021-10-10] MEDS: D5W AND 1/2NSS + 20MEQ KCL 20 MEQ/1,000 ML BAG IV SCH (10:55)
--- NOTE | 2021-10-10 11:47 | Urology Progress Note ---
Date of Service October 10, 2021 Assessment & Plan (1) Sepsis: (2) S/P ureteral stent placement: (3) Right ureteral calculus: Plan: 46yo F who is s/p right ureteral stent exchange and was admitted postoperatively due to concern for developing pyelonephritis and early sepsis - POD #2 s/p Cystoscopy, Right Retrograde Pyelogram, Extraction of encrusted right ureteral stent, and Right Ureteral Stent Insertion with Dr. Tyler - Pt admitted postoperatively due to concern for developing pyelonephritis/sepsis - Hospital team consulted due to postoperative state, comorbidities. - Afebrile, Labs reviewed - Wbc 6.23, Hgb 12.3, Creatinine 1.14 - UCx 4/18 with three types of organisms present, all high counts; Intraop UCx prelim with pin-point growth, re-incubating; BCx prelim no growth x24hrs - Continues on IV Zosyn. - Horn catheter intact, draining clear yellow urine. Plan- - Maintain Horn catheter, continue to monitor urine output. - Continue supportive care and antibiotic therapy, follow cultures and narrow as appropriate. - Continue care per hospital medicine for management of chronic conditions, appreciate assistance. - Plan for discharge back to [place] when medically stable. - Will need outpatient follow-up with urology for stone and stent management after she recovers from acute issue. Admission and Anticipated Discharge Date Admission Date: October 08, 2021 Supervising Physician Co-Signing Physician Notes I have discussed Ms. Suazo' case with MERCEDES Urbina and agree with the above documentation. Mental status has improved since yesterday. She remains hemodynamically stable and afebrile. She remains on broad-spectrum antibiotics with final cultures pending. She is still n.p.o. in anticipation of a repeat bedside swallow evaluation -receiving IV fluids in the meantime. She appears to be tolerating her stent well with no significant pain. Appreciate medicine assistance with comorbidities. Subjective Pt examined at bedside this AM with Dr. Kelly. Awake, resting in bed on arrival. No acute distress. More interactive today than yesterday. Answering more questions appropriately. Not oriented to situation. No fevers overnight. Denied pain. Has been on strict NPO. Horn catheter draining yellow urine with some sediment noted in tubing. 400ml urine output in bag at time of exam. Review of Systems Constitutional: as per Subjective / HPI Genitourinary: as per Subjective / HPI Neurologic: as per Subjective / HPI Psychiatric: as per Subjective / HPI Physical Exam Constitutional: no acute distress Respiratory: no respiratory distress and no labored breathing Gastrointestinal (Abdomen): Inspection/Auscultation: abdomen normal to inspection Skin: Warm and dry Neurologic: moves all extremities and awake Psychiatric: Orientation: alert and oriented to person; + not oriented to place and + not oriented to time Genitourinary: Horn catheter intact, draining yellow urine with small amount of sediment noted in tubing. Results & Data ([facility]) Vital Signs (Past 12 Hours) Vital Signs Temp Pulse Resp BP Pulse Ox 10/10/21 11:27 36.3 C L 66 17 97/67 L 100 10/10/21 07:19 36.5 C 65 17 110/67 100 10/10/21 03:57 36.7 C 61 20 101/69 100 PG Care Time/CCT Total # of Minutes Spent Total Time Spent with Patient: Total time spent is greater than 50% in coordination of care (as documented) at patient's floor/unit and/or counseling patient: Coding Level of Care Code 10745 Subseq Hosp Care Lvl 2 Diagnoses Sepsis A41.9 S/P ureteral stent placement Z96.0 Right ureteral calculus N20.1
[2021-10-10] MEDS: MIRTAZAPINE TAB 15 MG TAB PO SCH (20:36)
[2021-10-10] MEDS: MELATONIN 3 MG TAB PO SCH (20:36)
[2021-10-11] MEDS: D5W AND 1/2NSS + 20MEQ KCL 20 MEQ/1,000 ML BAG IV SCH ×2 (01:31→15:23)
[2021-10-11] MEDS: PIPERACILLIN/TAZOBACTAM 3.375 GM in DEXTROSE 5% 100 ML IV SCH ×3 (02:09→17:40)
[2021-10-11] MEDS: CALCIUM 600MG + VIT D 400 IU TAB PO SCH ×2 (08:24→20:28)
[2021-10-11] MEDS: FAMOTIDINE 20 MG TAB PO SCH (08:24)
[2021-10-11] MEDS: ARIPiprazole 10 MG TAB PO SCH (08:24)
[2021-10-11] MEDS: DOCUSATE SODIUM/SENNA 50/8.6MG TAB PO SCH ×2 (08:24→20:27)
[2021-10-11] MEDS: FLUoxetine HCL 10 MG CAP PO SCH (08:24)
[2021-10-11] MEDS: POLYETHYLENE (MIRALAX) 17 GM PACK PO SCH (08:25)
[2021-10-11] MEDS: PANTOprazole 40 MG TAB PO SCH (08:25)
[2021-10-11] MEDS: DOCUSATE SODIUM 100 MG CAP PO SCH ×2 (08:25→20:28)
[2021-10-11] MEDS: LACOSAMIDE 100 MG in SODIUM CHLORIDE 0.9% 50 ML IV SCH ×2 (09:44→21:52)
--- NOTE | 2021-10-11 11:00 | Urology Progress Note ---
Date of Service October 11, 2021 Assessment & Plan (1) Sepsis: (2) S/P ureteral stent placement: (3) Right ureteral calculus: Plan: 46yo F who is s/p right ureteral stent exchange and was admitted postoperatively due to concern for developing pyelonephritis and early sepsis - POD #3 s/p Cystoscopy, Right Retrograde Pyelogram, Extraction of encrusted right ureteral stent, and Right Ureteral Stent Insertion with Dr. Tyler - Pt admitted postoperatively due to concern for developing pyelonephritis/sepsis - Hospital team consulted due to postoperative state, comorbidities. - She remains afebrile and hemodynamically stable. - Appears to be tolerating her stent well with no significant pain. - Intraop UCx prelim E.coli ESBL (sensitive to Zosyn) and probable enterococcus (sensitivities pending); BCx prelim no growth x48hrs - Continues on IV Zosyn, follow cultures. - Horn catheter intact, draining clear yellow urine. Plan- - Maintain Horn catheter, continue to monitor urine output. - Continue supportive care and antibiotic therapy, follow cultures and narrow as appropriate. - Continue care per hospital medicine for management of chronic conditions, appreciate assistance. - Plan for discharge back to [place] when medically stable. Discussed with hospital medicine, discharge possibly tomorrow if she can return to baseline diet. Per notes, pt will need negative Covid test prior to discharge to facility. - Will need outpatient follow-up with urology for stone and stent management after she recovers from acute issue and infection has resolved. Admission and Anticipated Discharge Date Admission Date: October 10, 2021 Supervising Physician Co-Signing Physician Notes Discussed patient with PEDRO PABLO. Agree with plan. Subjective Pt examined at bedside this AM. Awake, sitting up in bed on arrival. No acute distress. Answered some questions with a head nod/shake. No fevers overnight. Denied pain. On strict NPO. Horn catheter draining clear yellow urine. Urine output overnight -300ml. Per chart review - CRITICAL CARE EDUCATOR to see as pt failed dysphagia screen and has dental caries. Review of Systems Constitutional: as per Subjective / HPI Genitourinary: as per Subjective / HPI Neurologic: as per Subjective / HPI Psychiatric: as per Subjective / HPI Physical Exam Constitutional: no acute distress Respiratory: no respiratory distress and no labored breathing Gastrointestinal (Abdomen): Inspection/Auscultation: abdomen normal to inspection Skin: Warm and dry Neurologic: awake Psychiatric: Orientation: alert and oriented to person Genitourinary: Horn catheter intact, draining clear yellow urine Results & Data ([facility]) Vital Signs (Past 12 Hours) Vital Signs Temp Pulse Pulse Resp BP Pulse Ox 10/11/21 07:08 36.7 C 67 17 98/62 L 100 10/11/21 04:00 36.6 C 72 18 100/84 100 10/10/21 23:29 63 10/10/21 23:00 36.5 C 60 20 106/73 100 PG Care Time/CCT Total # of Minutes Spent Total Time Spent with Patient: Total time spent is greater than 50% in coordination of care (as documented) at patient's floor/unit and/or counseling patient: Coding Level of Care Code 17668 Subseq Hosp Care Lvl 2 Diagnoses Sepsis A41.9 S/P ureteral stent placement Z96.0 Right ureteral calculus N20.1
--- NOTE | 2021-10-11 15:33 | Hospitalist Progress Note ---
Date of Service October 11, 2021 Assessment & Plan (1) Sepsis: Plan: Nayely is a 46-year-old female with a history of brain cancer with surgical excision from behind the right eye in [place] in 2000 unclear type, seizure disorder with last seizure in 2010 controlled on lacosamide, and GERD who presented for outpatient stent exchange. She initially had presented to an outside facility with severe sepsis UTI and pyelonephritis, and was found to have an obstructing right ureteral calculus. She presented to [facility] for stent exchange. Perioperatively she became increasingly tachycardic, and did have a fever following procedure. Stent was encrusted on removal, likely infected and obstructed prior with patient progressing to sepsis/pyelonephritis. She had an outpatient UA which was infected appearing, per verbal report culture sensitivity was for Cipro sensitive E. coli. Attempted to verify this record, ER unable to log into [employer] system since patient was a OR admit in OR did not have access to [employer] records. We will continue to attempt to obtain records. Sepsis, complicated UTI associated with ureteral stent Pyelonephritis -prehospital ciprofloxacin sensitive E. coli. Intraoperative urine cultures pending 3 stent exchange, afebrile on reevaluation on Zosyn therapy to cover e coli esbl and enterococcus faecalis Negative COVID preop Lactate normal -speech therapy cleared for po intake 10/11/21 (2) Other seizures: Plan: -histotical information obtained from patient's mother. Reportedly had seizures post brain tumor resection Last seizure 2010 Well-controlled on lacosamide. Continue lacosamide 100 mg p.o. twice daily. consider moving to po soon (3) GERD (gastroesophageal reflux disease): Plan: Protonix 40 twice daily Pepcid 20 mg p.o. daily (4) Major depressive disorder: Plan: Continue Remeron 7.5 mg p.o. nightly Continue aripiprazole 10 mg p.o. daily melatonin 3 mg p.o. nightly for sleep preop EKG QTC 473 (5) Hyperosmolality and hypernatremia: Plan: Sodium 149 4/15 preop (6) Right ureteral calculus: Plan: Management as above, stent management per urology Plan: DVT prophylaxis: SCDs, Lovenox after 24 hours Diet: N.p.o CODE STATUS: DNR/DNI, confirmed with patient's mother, and advanced directive on file, and assented at bedside noting patient cognitive status is reduced Dispo: PCU, Admission and Anticipated Discharge Date Admission Date: October 10, 2021 Subjective pt is lethargic today, but was cleared by speech to have diet Review of Systems Review of Systems: Unobtainable due to cognitive status Physical Exam Physical Exam: The patient appeared well nourished and normally developed. Vital signs as documented. Head exam is normocephalic atraumatic Neck is without JVD, thyromegaly, or carotid bruits. Lungs are diminished Cardiac exam, Rhythm is regular.. No murmurs, rubs or gallops. Abdominal exam reveals normal bowel sounds, soft non tender, no masses Extremities are nonedematous and both pedal pulses are present Neurologic exam awakens to voice, spontaneously moves all extremities Skin is without bruises or rashes baseline cognitive impairment Results & Data Results & Data ([facility]) Vital Signs (Past 12 Hours) Vital Signs Temp Pulse Pulse Resp BP Pulse Ox 10/11/21 12:13 99.1 F 71 17 104/72 99 10/11/21 09:15 63 10/11/21 07:08 98.1 F 67 17 98/62 L 100 10/11/21 04:00 97.9 F 72 18 100/84 100 PG Care Time/CCT Total # of Minutes Spent Total Time Spent with Patient: Total time spent is greater than 50% in coordination of care (as documented) at patient's floor/unit and/or counseling patient: Coding Level of Care Code 12925 Subseq Hosp Care Lvl 2 Diagnoses Sepsis A41.9 Other seizures G40.89 GERD (gastroesophageal reflux disease) K21.9 Major depressive disorder F32.9 Hyperosmolality and hypernatremia E87.0 Right ureteral calculus N20.1
[2021-10-11] MEDS: MELATONIN 3 MG TAB PO SCH (20:29)
[2021-10-11] MEDS: MIRTAZAPINE TAB 15 MG TAB PO SCH (20:31)
[2021-10-12] MEDS: PIPERACILLIN/TAZOBACTAM 3.375 GM in DEXTROSE 5% 100 ML IV SCH (01:08)
[2021-10-12] MEDS: MoRPHine SULFATE 2 MG/ML CARP IV PRN (03:24)
[2021-10-12 08:46] LABS: Basophils # (auto) 0.01 K/uL (0-0.2); Basophils % (auto) 0.1 %; Eosinophils # (auto) 0.11 K/uL (0-0.5); Eosinophils % (auto) 1.4 %; Hematocrit (blood only) 35.3 % (37-47); Hemoglobin 10.4 g/dL (12.0-16.0); Immature Granulocytes # (auto) 0.01 K/uL (0.00-0.02); Immature Granulocytes % (auto) 0.1 %; Lymphocytes # (auto) 1.31 K/uL (1.2-3.4); Lymphocytes % (auto) 16.4 %; Mean Corpuscular Hemoglobin 26.5 pg (25-34); Mean Corpuscular Hgb Conc 29.5 g/dL (32-36); Mean Corpuscular Volume 89.8 fL (80-100); Mean Platelet Volume 11.4 fL (7.4-10.4); Monocytes # (auto) 0.68 K/uL (0.11-0.59); Monocytes % (auto) 8.5 %; Neutrophils # (auto) 5.87 K/uL (1.4-6.5); Neutrophils % (auto) 73.5 %; Platelet Count 149 K/uL (130-400); RDW Coefficient of Variation 14.9 % (11.5-14.5); RDW Standard Deviation 48.7 fL (36.4-46.3); Red Blood Count 3.93 M/uL (4.2-5.4); White Blood Count 7.99 K/uL (4.8-10.8)
[2021-10-12] MEDS: LACOSAMIDE 100 MG in SODIUM CHLORIDE 0.9% 50 ML IV SCH ×2 (08:52→21:42)
--- NOTE | 2021-10-12 09:19 | Urology Progress Note ---
Date of Service October 12, 2021 Assessment & Plan (1) Sepsis: (2) S/P ureteral stent placement: (3) Right ureteral calculus: Plan: 46 yo F who is s/p right ureteral stent exchange and was admitted postoperatively due to concern for developing pyelonephritis and early sepsis. - POD #4 s/p Cystoscopy, Right Retrograde Pyelogram, Extraction of encrusted right ureteral stent, and Right Ureteral Stent Insertion. - Pt admitted postoperatively due to concern for developing pyelonephritis/sepsis. - Hospital team consulted due to postoperative state, comorbidities. - She remains afebrile and hemodynamically stable. - Appears to be tolerating her stent well with no significant pain. - Intraop urine culture final grew out E.coli ESBL and Enterococcus. - Currently on IV Zosyn which covers E. coli ESBL, but does not appear to cover the Enterococcus which just finalized. - Recommend expand for coverage of Enterococcus. Discussed with medicine - they will manage. - BCx prelim no growth x 48hrs. - Horn catheter intact, draining clear yellow urine. Plan - - Maintain Horn catheter, continue to monitor urine output. - Continue supportive care and antibiotic therapy. - Continue care per hospital medicine for management of chronic conditions, appreciate assistance. - Plan for discharge back to [facility] when medically stable. - Per notes, pt will need negative Covid test prior to discharge to facility. - Will need outpatient follow-up with urology for stone and stent management after she recovers from acute issue and infection has resolved. Admission and Anticipated Discharge Date Admission Date: October 10, 2021 Subjective Pt seen and examined at bedside this AM. Lethargic/somnolent, no acute distress. She opens her eyes to verbal stimuli but otherwise not answering questions/following commands. ROS unobtainable due to cognitive status. Horn intact and draining clear yellow urine. Urine output - 300 mL overnight. No fevers overnight. Diet has been advanced to full liquid. Per nursing, unable to give her oral medications/diet this AM due to cognitive status/lethargy. Review of Systems Review of Systems: Unobtainable due to cognitive status Physical Exam Constitutional: comfortable and + lethargic; no acute distress Respiratory: no respiratory distress and no labored breathing Cardiovascular: Extremities: no pedal edema Gastrointestinal (Abdomen): Inspection/Auscultation: abdomen normal to inspection Percussion/Palpation: abdomen soft; abdomen nontender Skin: Warm and dry Neurologic: lethargic/somnolent, opened eyes briefly to verbal stimuli, otherwise did not answer questions or follow commands Psychiatric: opened eyes to name Genitourinary: Horn catheter intact, draining clear yellow urine Results & Data ([facility]) Vital Signs (Past 12 Hours) Vital Signs Temp Pulse Pulse Resp BP Pulse Ox 10/12/21 08:03 36.6 C 73 18 115/81 100 10/12/21 03:15 36.6 C 79 19 111/78 95 10/12/21 00:06 66 10/11/21 23:16 36.5 C 73 19 117/74 98 PG Care Time/CCT Total # of Minutes Spent Total Time Spent with Patient: Total time spent is greater than 50% in coordination of care (as documented) at patient's floor/unit and/or counseling patient: Coding Level of Care Code 99413 Subseq Hosp Care Lvl 2 Diagnoses Sepsis A41.9 S/P ureteral stent placement Z96.0 Right ureteral calculus N20.1
[2021-10-12 09:25] LABS: BUN Creatinine Ratio 10.6 (10-20); Calcium 8.6 mg/dl (8.5-10.1); Creatinine Clr Calc Pharmacy 96.4 ml/min; Est GFR (African American) 93.9 ml/min; Potassium 3.4 mmol/L (3.5-5.1)
[2021-10-12] MEDS: DOCUSATE SODIUM/SENNA 50/8.6MG TAB PO SCH ×2 (09:31→21:49)
[2021-10-12] MEDS: DOCUSATE SODIUM 100 MG CAP PO SCH ×2 (09:31→21:49)
[2021-10-12] MEDS: FAMOTIDINE 20 MG TAB PO SCH (09:31)
[2021-10-12] MEDS: FLUoxetine HCL 10 MG CAP PO SCH (09:31)
[2021-10-12] MEDS: PANTOprazole 40 MG TAB PO SCH (09:31)
[2021-10-12] MEDS: CALCIUM 600MG + VIT D 400 IU TAB PO SCH (09:31)
[2021-10-12] MEDS: POLYETHYLENE (MIRALAX) 17 GM PACK PO SCH (09:32)
[2021-10-12] MEDS ORDERED: PIPERACILLIN/TAZOBACTAM 4.5 GM in DEXTROSE 5% 100 ML IV SCH (10:00)
[2021-10-12] MEDS ORDERED: AMPICILLIN 1,000 MG in SODIUM CHLOR 0.9% AD-VAN 50 ML IV SCH (10:30)
[2021-10-12] MEDS ORDERED: ERTAPENEM SODIUM 10 ML IV STA (10:38)
[2021-10-12] MEDS: ERTAPENEM SODIUM 1,000 MG in SYRINGE 0 ML IV SCH (11:19)
[2021-10-12] MEDS: AMPICILLIN 2,000 MG in SODIUM CHLOR 0.9% AD-VAN 100 ML IV SCH ×3 (11:50→20:31)
[2021-10-12] MEDS: D5W AND 1/2NSS + 20MEQ KCL 20 MEQ/1,000 ML BAG IV SCH (12:40)
--- NOTE | 2021-10-12 18:09 | Hospitalist Progress Note ---
Date of Service October 12, 2021 Assessment & Plan (1) Sepsis: Plan: Nayely is a 46-year-old female with a history of brain cancer with surgical excision from behind the right eye in [place] in 2000 unclear type, seizure disorder with last seizure in 2010 controlled on lacosamide, and GERD who presented for outpatient stent exchange. She initially had presented to an outside facility with severe sepsis UTI and pyelonephritis, and was found to have an obstructing right ureteral calculus. She presented to [facility] for stent exchange. Perioperatively she became increasingly tachycardic, and did have a fever following procedure. Stent was encrusted on removal, likely infected and obstructed prior with patient progressing to sepsis/pyelonephritis. She had an outpatient UA which was infected appearing, per verbal report culture sensitivity was for Cipro sensitive E. coli. Attempted to verify this record, ER unable to log into [employer] system since patient was a OR admit in OR did not have access to [employer] records. We will continue to attempt to obtain records. Sepsis, complicated UTI associated with ureteral stent Pyelonephritis -prehospital ciprofloxacin sensitive E. coli. Intraoperative urine cultures not showing any additional information 3 stent exchange, afebrile on reevaluation e coli esbl although sensitive to zosyn will change to ertapenem due to lack of clinical improvemetn - and enterococcus faecalis will be covered by pcn from zosyn but will be ampicillin at this time Negative COVID preop Lactate normal -speech therapy cleared for po intake 10/11/21 (2) Encephalopathy: Plan: Unclear whether toxic or metabolic. Changing antibiotics to try to help with metabolic. Discontinue many medications to help with toxic. Should not be her lacosamide as her dose is equivalent to her outpatient dose. We will continue to follow cautiously (3) Other seizures: Plan: -histotical information obtained from patient's mother. Reportedly had seizures post brain tumor resection Last seizure 2010 Well-controlled on lacosamide. Continue lacosamide 100 mg p.o. twice daily. consider moving to po soon (4) GERD (gastroesophageal reflux disease): Plan: Protonix 40 twice daily Pepcid 20 mg p.o. daily (5) Major depressive disorder: Plan: Continue Remeron 7.5 mg p.o. nightly Continue aripiprazole 10 mg p.o. daily melatonin 3 mg p.o. nightly for sleep preop EKG QTC 473 (6) Hyperosmolality and hypernatremia: Plan: Sodium 149 4/15 preop (7) Right ureteral calculus: Plan: Management as above, stent management per urology Plan: DVT prophylaxis: SCDs, Lovenox after 24 hours Diet: N.p.o CODE STATUS: DNR/DNI, confirmed with patient's mother, and advanced directive on file, and assented at bedside noting patient cognitive status is reduced Dispo: PCU, Admission and Anticipated Discharge Date Admission Date: October 10, 2021 Subjective pt is sleepy but awakens, concern for undertreated ESBL e coli despite sensitivities and also stopping medications that may cause toxic encephalopathy Review of Systems Review of Systems: Mild distress and fatigue systems are colored by her mental impairment from her craniotomy no headache, no visual changes Nursing has had some swallowing issues no chest pain, pressure or palpitations no shortness of breath, cough or wheezes no abdominal pain has resolved no focal joint pain or swelling no back pain, CVA tenderness or radicular pain no bruising, bleeding or rashes Physical Exam Physical Exam: The patient appeared well nourished and normally developed. Vital signs as documented. Head exam is normocephalic atraumatic Neck is without JVD, thyromegaly, or carotid bruits. Lungs are diminished Cardiac exam, Rhythm is regular.. No murmurs, rubs or gallops. Abdominal exam reveals normal bowel sounds, soft non tender, no masses Extremities are nonedematous and both pedal pulses are present Neurologic exam awakens to voice, spontaneously moves all extremities Skin is without bruises or rashes baseline cognitive impairment Results & Data Results & Data ([facility]) Vital Signs (Past 12 Hours) Vital Signs Temp Pulse Pulse Resp BP Pulse Ox 10/12/21 16:25 98.2 F 69 18 98/65 L 99 10/12/21 08:03 97.9 F 73 18 115/81 100 10/12/21 08:00 88 PG Care Time/CCT Total # of Minutes Spent Total Time Spent with Patient: Total time spent is greater than 50% in coordination of care (as documented) at patient's floor/unit and/or counseling patient: Coding Level of Care Code 65294 Subseq Hosp Care Lvl 3 Diagnoses Sepsis A41.9 Other seizures G40.89 GERD (gastroesophageal reflux disease) K21.9 Major depressive disorder F32.9 Hyperosmolality and hypernatremia E87.0 Right ureteral calculus N20.1 Encephalopathy G93.40
[2021-10-12] MEDS: MELATONIN 3 MG TAB PO SCH (21:49)
[2021-10-13] MEDS: AMPICILLIN 2,000 MG in SODIUM CHLOR 0.9% AD-VAN 100 ML IV SCH ×7 (00:17→23:48)
[2021-10-13] MEDS: D5W AND 1/2NSS + 20MEQ KCL 20 MEQ/1,000 ML BAG IV SCH ×2 (00:22→13:38)
--- NOTE | 2021-10-13 08:56 | Urology Progress Note ---
Date of Service October 13, 2021 Assessment & Plan (1) Encephalopathy: (2) S/P ureteral stent placement: Plan: Challenging for me to ascertain whether or not she is improving or staying stable as I do not know the patient personally and she is minimally responsive She is objectively stable Antibiotics were changed yesterday because of her lack of clinical response I think there is a possibility she is close to her normal baseline but that is somewhat presumptive from me She has numerous chronic/comorbid conditions From a standpoint she is relatively stable but will require continued antibiotics We will have to discuss appropriate criteria for discharge from medical standpoint we greatly appreciate the help of the hospitalist team for assisting us while she is an inpatient Admission and Anticipated Discharge Date Admission Date: October 10, 2021 Subjective Difficult to assess any subjective complaints as she is minimally responsive She does open her eyes and somewhat acknowledge my questions but with limited responses She does not seem to be in any discomfort and her urine remains clear She is afebrile and hemodynamically stable Antibiotics were changed yesterday to ertapenem and ampicillinshe is growing Enterococcus faecalis and E. coli in her urine Physical Exam Physical Exam: Minimally responsive but does open eyes and acknowledge my presence Abdomen soft No respiratory distress No severe edema Urine clearFoley in place Results & Data ([facility]) Vital Signs (Past 12 Hours) Vital Signs Temp Pulse Pulse Resp BP Pulse Ox 10/13/21 08:06 36.7 C 65 17 96/58 L 98 10/13/21 04:45 36.8 C 69 16 109/73 99 10/12/21 23:06 36.9 C 84 16 107/74 100 10/12/21 22:25 82 PG Care Time/CCT Total # of Minutes Spent Total Time Spent with Patient: Total time spent is greater than 50% in coordination of care (as documented) at patient's floor/unit and/or counseling patient: Coding Level of Care Code 61380 Subseq Hosp Care Lvl 2 Diagnoses Encephalopathy G93.40 S/P ureteral stent placement Z96.0
[2021-10-13] MEDS: DOCUSATE SODIUM 100 MG CAP PO SCH ×2 (09:56→20:06)
[2021-10-13] MEDS: FAMOTIDINE 20 MG TAB PO SCH (09:56)
[2021-10-13] MEDS: DOCUSATE SODIUM/SENNA 50/8.6MG TAB PO SCH ×2 (09:56→20:06)
[2021-10-13] MEDS: POLYETHYLENE (MIRALAX) 17 GM PACK PO SCH (09:57)
[2021-10-13] MEDS: FLUoxetine HCL 10 MG CAP PO SCH (09:57)
[2021-10-13] MEDS: PANTOprazole 40 MG TAB PO SCH (09:57)
[2021-10-13] MEDS: LACOSAMIDE 100 MG in SODIUM CHLORIDE 0.9% 50 ML IV SCH ×2 (10:07→23:09)
[2021-10-13] MEDS: ERTAPENEM SODIUM 1,000 MG in SYRINGE 0 ML IV SCH (12:29)
--- NOTE | 2021-10-13 12:50 | Hospitalist Progress Note ---
Date of Service October 13, 2021 Assessment & Plan (1) Sepsis: Plan: Nayely is a 46-year-old female with a history of brain cancer with surgical excision from behind the right eye in [place] in 2000 unclear type, seizure disorder with last seizure in 2010 controlled on lacosamide, and GERD who presented for outpatient stent exchange. She initially had presented to an outside facility with severe sepsis UTI and pyelonephritis, and was found to have an obstructing right ureteral calculus. She presented to [facility] for stent exchange. Perioperatively she became increasingly tachycardic, and did have a fever following procedure. Stent was encrusted on removal, likely infected and obstructed prior with patient progressing to sepsis/pyelonephritis. She had an outpatient UA which was infected appearing, per verbal report culture sensitivity was for Cipro sensitive E. coli. Attempted to verify this record, ER unable to log into [employer] system since patient was a OR admit in OR did not have access to [employer] records. We will continue to attempt to obtain records. Sepsis, complicated UTI associated with ureteral stent Pyelonephritis -prehospital ciprofloxacin sensitive E. coli. Intraoperative urine cultures not showing any additional information stent exchange, afebrile on reevaluation e coli esbl although sensitive to zosyn will change to ertapenem due to lack of clinical improvement - and enterococcus faecalis will be covered by pcn from zosyn but will be ampicillin at this time Negative COVID preop Lactate normal -speech therapy cleared for po intake 10/11/21 (2) Encephalopathy: Plan: Unclear whether toxic or metabolic. Changing antibiotics to try to help with metabolic. Discontinue many medications to help with toxic. Should not be her lacosamide as her dose is equivalent to her outpatient dose. We will continue to follow cautiously given history of intracranial malignancy and surgery will check head CT on 10/13/21 (3) Other seizures: Plan: -histotical information obtained from patient's mother. Reportedly had seizures post brain tumor resection Last seizure 2010 Well-controlled on lacosamide. Continue lacosamide 100 mg p.o. twice daily. consider moving to po soon (4) GERD (gastroesophageal reflux disease): Plan: Protonix 40 twice daily Pepcid 20 mg p.o. daily (5) Major depressive disorder: Plan: Continue Remeron 7.5 mg p.o. nightly Continue aripiprazole 10 mg p.o. daily melatonin 3 mg p.o. nightly for sleep preop EKG QTC 473 (6) Hyperosmolality and hypernatremia: Plan: Sodium 149 10/05 preop 146 on 10/12 (7) Right ureteral calculus: Plan: Management as above, stent management per urology Plan: DVT prophylaxis: SCDs, Lovenox after 24 hours Diet: speech has cleared for oral intake transfered pt to medical team as urology issues are now stable, disposition and encephalopathy are biggest issue CODE STATUS: DNR/DNI, confirmed with patient's mother, and advanced directive on file, and assented at bedside noting patient cognitive status is reduced Dispo: PCU, Admission and Anticipated Discharge Date Admission Date: October 10, 2021 Subjective Difficult to assess any subjective complaints as she is awake but not verbally responsive She does open her eyes and blinks on command plus follows me with her eyes around the room She does not seem to be in any discomfort and her urine remains clear She is afebrile and hemodynamically stable Antibiotics were changed yesterday to ertapenem and ampicillinshe is growing Enterococcus faecalis and E. coli in her urine, with pharmacy oversight Review of Systems Review of Systems: Mild distress and fatigue review of systems are colored by her mental impairment from her craniotomy and limited responsiveness no headache, no visual changes Nursing has had some swallowing issues no chest pain, pressure or palpitations no shortness of breath, cough or wheezes no abdominal pain has resolved no focal joint pain or swelling no back pain, CVA tenderness or radicular pain no bruising, bleeding or rashes Physical Exam Physical Exam: The patient appeared well nourished and normally developed. Vital signs as documented. oral pharnyx with poor dentition and bleeding gums Head exam is normocephalic atraumatic Neck is without JVD, thyromegaly, or carotid bruits. Lungs are diminished Cardiac exam, Rhythm is regular.. No murmurs, rubs or gallops. Abdominal exam reveals normal bowel sounds, soft non tender, no masses Extremities are nonedematous and both pedal pulses are present Neurologic exam awakens to voice, spontaneously moves all extremities Skin is without bruises or rashes baseline cognitive impairment Results & Data Results & Data ([facility]) Vital Signs (Past 12 Hours) Vital Signs Temp Pulse Resp BP Pulse Ox 10/13/21 12:17 99.1 F 69 17 107/71 100 10/13/21 08:06 98.1 F 65 17 96/58 L 98 10/13/21 04:45 98.2 F 69 16 109/73 99 PG Care Time/CCT Total # of Minutes Spent Total Time Spent with Patient: Total time spent is greater than 50% in coordination of care (as documented) at patient's floor/unit and/or counseling patient: Coding Level of Care Code 12800 Subseq Hosp Care Lvl 3 Diagnoses Sepsis A41.9 Encephalopathy G93.40 Other seizures G40.89 GERD (gastroesophageal reflux disease) K21.9 Major depressive disorder F32.9 Hyperosmolality and hypernatremia E87.0 Right ureteral calculus N20.1
[2021-10-13] MEDS ORDERED: OPTIRAY 320 100ml IV ONE (13:11)
--- NOTE | 2021-10-13 13:19 | CT Scan Report ---
CT head/brain wo/w con CLINICAL HISTORY: Mental status changes with h/o craniotomy COMPARISON STUDY: Multiaxial CT images of the head were performed both before and after the intraven ous administration of contrast. FINDINGS: Prior right frontal craniotomy. The paranasal sinuses and mastoid air cells are clear. No a cute calvarial fractures identified. Large area of encephalomalacia within the right frontal lobe darlene p to the craniotomy site. No abnormal enhancement. There is no mass, hematoma, midline shift, acute i nfarct. Ex vacuo dilatation of the frontal horns of the lateral ventricles is noted. IMPRESSION: 1. Prior right frontal craniotomy with a large area of encephalomalacia within the right frontal lobe . 2. No acute infarct or intracranial hemorrhage. 3. No intracranial masses identified. ACT 112: Negative or not required by law. Electronically signed by: Yariel Guveara M.D. 10/13/2021 1:17 PM
[2021-10-13] MEDS: MELATONIN 3 MG TAB PO SCH (20:07)
[2021-10-14] MEDS: AMPICILLIN 2,000 MG in SODIUM CHLOR 0.9% AD-VAN 100 ML IV SCH ×6 (04:16→23:44)
[2021-10-14] MEDS: D5W AND 1/2NSS + 20MEQ KCL 20 MEQ/1,000 ML BAG IV SCH ×2 (05:33→07:47)
[2021-10-14] MEDS: FLUoxetine HCL 10 MG CAP PO SCH (07:44)
[2021-10-14] MEDS: FAMOTIDINE 20 MG TAB PO SCH (07:44)
[2021-10-14] MEDS: DOCUSATE SODIUM 100 MG CAP PO SCH ×2 (07:44→19:45)
[2021-10-14] MEDS: DOCUSATE SODIUM/SENNA 50/8.6MG TAB PO SCH ×2 (07:44→19:45)
[2021-10-14] MEDS: PANTOprazole 40 MG TAB PO SCH (07:45)
[2021-10-14] MEDS: POLYETHYLENE (MIRALAX) 17 GM PACK PO SCH (07:45)
[2021-10-14] MEDS: LACOSAMIDE 100 MG in SODIUM CHLORIDE 0.9% 50 ML IV SCH ×2 (07:45→09:03)
--- NOTE | 2021-10-14 09:03 | Urology Progress Note ---
Date of Service October 14, 2021 Assessment & Plan (1) S/P ureteral stent placement: Plan: cont abx cont supportive care Admission and Anticipated Discharge Date Admission Date: October 10, 2021 Subjective resting comfortably as I evaluated her no real interaction aside from opening her eyes Physical Exam Physical Exam: Comfortable appearing no demonstrable pain urine clear Results & Data ([facility]) Vital Signs (Past 12 Hours) Vital Signs Temp Pulse Resp BP Pulse Ox 10/14/21 07:25 36.7 C 78 16 107/74 100 PG Care Time/CCT Total # of Minutes Spent Total Time Spent with Patient: Total time spent is greater than 50% in coordination of care (as documented) at patient's floor/unit and/or counseling patient: Coding Level of Care Code 11195 Subseq Hosp Care Lvl 2 Diagnoses S/P ureteral stent placement Z96.0
[2021-10-14] MEDS: ERTAPENEM SODIUM 1,000 MG in SYRINGE 0 ML IV SCH (10:56)
--- NOTE | 2021-10-14 11:38 | Hospitalist Progress Note ---
Date of Service October 14, 2021 Assessment & Plan (1) Sepsis: Plan: Nayely is a 46-year-old female with a history of brain cancer with surgical excision from behind the right eye in [place] in 2000 unclear type, seizure disorder with last seizure in 2010 controlled on lacosamide, and GERD who presented for outpatient stent exchange. She initially had presented to an outside facility with severe sepsis UTI and pyelonephritis, and was found to have an obstructing right ureteral calculus. She presented to [facility] for stent exchange. Perioperatively she became increasingly tachycardic, and did have a fever following procedure. Stent was encrusted on removal, likely infected and obstructed prior with patient progressing to sepsis/pyelonephritis. She had an outpatient UA which was infected appearing, per verbal report culture sensitivity was for Cipro sensitive E. coli. Attempted to verify this record, ER unable to log into [email or web address] system since patient was a OR admit in OR did not have access to [email or web address] records. We will continue to attempt to obtain records. Sepsis, complicated UTI associated with ureteral stent Pyelonephritis -prehospital ciprofloxacin sensitive E. coli. Intraoperative urine cultures not showing any additional information stent exchange, afebrile on reevaluation e coli esbl although sensitive to zosyn will change to ertapenem due to lack of clinical improvement - and enterococcus faecalis will be covered by pcn from zosyn but will be ampicillin at this time Negative COVID preop Lactate normal -speech therapy cleared for po intake 10/11/21, puree diet, reportedly she is a complete feed there (2) Encephalopathy: Plan: Unclear whether toxic or metabolic. Changing antibiotics to try to help with metabolic. Discontinue many medications to help with toxic. Should not be her lacosamide as her dose is equivalent to her outpatient dose. We will continue to follow cautiously given history of intracranial malignancy and surgery did check head CT on 10/13/21 shows encephalomalacia from previous surgery but no new finding (3) Other seizures: Plan: -histotical information obtained from patient's mother. Reportedly had seizures post brain tumor resection Last seizure 2010 Well-controlled on lacosamide. Continue lacosamide 100 mg p.o. twice daily. consider moving to po soon (4) GERD (gastroesophageal reflux disease): Plan: Protonix 40 twice daily Pepcid 20 mg p.o. daily (5) Major depressive disorder: Plan: melatonin 3 mg p.o. nightly for sleep preop EKG QTC 473 (6) Hyperosmolality and hypernatremia: Plan: Sodium 149 10/05 preop 146 on 10/12 (7) Right ureteral calculus: Plan: Management as above, stent management per urology Plan: DVT prophylaxis: SCDs, Lovenox after 24 hours Diet: speech has cleared for oral intake transfered pt to medical team as urology issues are now stable, disposition and encephalopathy are biggest issue CODE STATUS: DNR/DNI, confirmed with patient's mother, and advanced directive on file, and assented at bedside noting patient cognitive status is reduced Dispo: PCU, Admission and Anticipated Discharge Date Admission Date: October 10, 2021 Subjective resting comfortably seems to make eye contact, I spoke to nursing at her skilled center, she seems to be near her baseline Review of Systems Review of Systems: Mild distress and fatigue review of systems are colored by her mental impairment from her craniotomy and limited responsiveness no headache, no visual changes Nursing has had some swallowing issues no chest pain, pressure or palpitations no shortness of breath, cough or wheezes no abdominal pain has resolved no focal joint pain or swelling no back pain, CVA tenderness or radicular pain no bruising, bleeding or rashes Physical Exam Physical Exam: The patient appeared well nourished and normally developed. Vital signs as documented. oral pharnyx with poor dentition and bleeding gums Head exam is normocephalic atraumatic Neck is without JVD, thyromegaly, or carotid bruits. Lungs are diminished Cardiac exam, Rhythm is regular.. No murmurs, rubs or gallops. Abdominal exam reveals normal bowel sounds, soft non tender, no masses Extremities are nonedematous and both pedal pulses are present Neurologic exam awakens to voice, spontaneously moves all extremities Skin is without bruises or rashes baseline cognitive impairment Results & Data Results & Data ([facility]) Vital Signs (Past 12 Hours) Vital Signs Temp Pulse Resp BP Pulse Ox 10/14/21 07:25 98.1 F 78 16 107/74 100 PG Care Time/CCT Total # of Minutes Spent Total Time Spent with Patient: Total time spent is greater than 50% in coordination of care (as documented) at patient's floor/unit and/or counseling patient: Coding Level of Care Code 30974 Subseq Hosp Care Lvl 2 Diagnoses Sepsis A41.9 Encephalopathy G93.40 Other seizures G40.89 GERD (gastroesophageal reflux disease) K21.9 Major depressive disorder F32.9 Hyperosmolality and hypernatremia E87.0 Right ureteral calculus N20.1
[2021-10-14] MEDS: MELATONIN 3 MG TAB PO SCH (20:37)
[2021-10-14] MEDS: LACOSAMIDE 50 MG TABLET PO SCH (20:37)
[2021-10-15] MEDS: AMPICILLIN 2,000 MG in SODIUM CHLOR 0.9% AD-VAN 100 ML IV SCH ×3 (04:43→13:15)
[2021-10-15] MEDS: PANTOprazole 40 MG TAB PO SCH (08:20)
[2021-10-15] MEDS: DOCUSATE SODIUM 100 MG CAP PO SCH (08:20)
[2021-10-15] MEDS: DOCUSATE SODIUM/SENNA 50/8.6MG TAB PO SCH (08:20)
[2021-10-15] MEDS: POLYETHYLENE (MIRALAX) 17 GM PACK PO SCH (08:20)
--- NOTE | 2021-10-15 08:36 | Urology Progress Note ---
Date of Service October 15, 2021 Assessment & Plan (1) S/P ureteral stent placement: Plan: 46yo F who was admitted postoperatively s/p right ureteral stent exchange due to concern for developing pyelonephritis and early sepsis. - She remains afebrile and hemodynamically stable. - Appears to be tolerating her stent well with no significant pain. - Intraop urine culture final grew out E.coli ESBL and Enterococcus; Blood cultures finalized with no growth. - Continues on IV Ertapenem and Ampicillin. - Horn catheter intact, draining clear yellow urine. - Maintain Horn catheter, continue to monitor urine output. - Continue supportive care and antibiotic therapy. - Will need outpatient follow-up with urology for stone and stent management after she recovers from acute issue and infection has resolved. - Urology will follow peripherally. Please contact us with any questions, concerns, or changes in patient status. Admission and Anticipated Discharge Date Admission Date: October 10, 2021 Subjective Pt examined at bedside this AM. Appears to be resting comfortably. No acute distress. She opens her eyes to verbal stimuli but otherwise not answering questions/following commands. Horn intact and draining clear yellow urine. ROS unobtainable due to cognitive status. Review of Systems Review of Systems: Unobtainable due to cognitive status Physical Exam Constitutional: comfortable; no acute distress Respiratory: no respiratory distress and no labored breathing Skin: Warm and dry Neurologic: opened eyes to verbal stimuli, otherwise did not answer questions or follow commands Psychiatric: opened eyes to name Genitourinary: Horn catheter intact, draining clear yellow urine Results & Data ([facility]) Vital Signs (Past 12 Hours) Vital Signs Temp Pulse Resp BP Pulse Ox 10/15/21 07:47 36.7 C 64 16 99/66 L 98 10/14/21 22:00 36.8 C 84 20 118/79 99 PG Care Time/CCT Total # of Minutes Spent Total Time Spent with Patient: Total time spent is greater than 50% in coordination of care (as documented) at patient's floor/unit and/or counseling patient: Coding Level of Care Code 62208 Subseq Hosp Care Lvl 2 Diagnoses S/P ureteral stent placement Z96.0
[2021-10-15] MEDS: FLUoxetine HCL 10 MG CAP PO SCH (09:41)
[2021-10-15] MEDS: FAMOTIDINE 20 MG TAB PO SCH (11:52)
[2021-10-15] MEDS: LACOSAMIDE 50 MG TABLET PO SCH (12:15)
[2021-10-15] MEDS: ERTAPENEM SODIUM 1,000 MG in SYRINGE 0 ML IV SCH (12:16)
--- NOTE | 2021-10-15 14:06 | Discharge Summary ---
Date of Service October 15, 2021 Principal Diagnosis sepsis, urinary source, culture confirmed. functional quadriplegia encephalomalacia with encephalopathy at baseline Discharge Exam The patient appeared chronically ill and limited with her interactions Vital signs as documented. Lungs are diminished bilaterally appears unlabored saturations are stable Cardiac exam, Rhythm is regular.. No murmurs, rubs or gallops. Abdominal exam reveals normal bowel sounds, soft non tender, no masses Extremities are nonedematous spontaneously move upper extremities but cannot bear weight Neurologic exam is alert and following with arises very little speech Discharge Data Allergies Allergy/AdvReac Type Severity Reaction Status Date / Time acetaminophen Allergy Unknown Unknown Verified 10/08/21 12:46 clindamycin Allergy Unknown Unknown Verified 10/08/21 12:46 Consultations 10/08/21 15:15 Consult Hospitalist Routine Procedures Performed Operation Date: 10/08/21 14:20 Actual Procedures p Cystoscopy, Right Retrograde Pyelogram , Right Ureteral Stent Insertion - Davy Tyler, Ordered Studies 10/08/21 07:00 FL retrograde includes kub Routine 10/13/21 11:33 CT head/brain wo/w con Stat Hospital Course (1) Sepsis: Nayely is a 46-year-old female with a history of brain cancer with surgical excision from behind the right eye in [place] in 2000 unclear type, seizure disorder with last seizure in 2010 controlled on lacosamide, and GERD who presented for outpatient stent exchange. She initially had presented to an outside facility with severe sepsis UTI and pyelonephritis, and was found to have an obstructing right ureteral calculus. She presented to an outside [facility] for ureteral stent exchange. Perioperatively she became increasingly tachycardic, and did have a fever following procedure. On 10/08/21 patient had cystoscopy encrusted stent removal and stent insertion Cultures eventually grew e coli esbl although sensitive to zosyn will change to ertapenem due to lack of clinical improvement - and enterococcus faecalis will be covered by pcn from zosyn but will be ampicillin at this time Negative COVID preop -speech therapy cleared for po intake 10/11/21, puree diet, reportedly she is a complete feed there (2) Encephalopathy: After looking further causes initially felt to be metabolic encephalopathy from her infection but now she has been sublimation likely has baseline decreased mental functioning due to progression of her encephalomalacia from previous craniotomies. given history of intracranial malignancy and surgery did check head CT on 10/13/21 shows encephalomalacia from previous surgery but no new findings (3) Other seizures: -histotical information obtained from patient's mother. Reportedly had seizures post brain tumor resection Last seizure 2010 Well-controlled on lacosamide. Continue lacosamide 100 mg p.o. twice daily. consider moving to po soon (4) GERD (gastroesophageal reflux disease): Protonix 40 twice daily Pepcid 20 mg p.o. daily (5) Major depressive disorder: melatonin 3 mg p.o. nightly for sleep preop EKG QTC 473 (6) Hyperosmolality and hypernatremia: Sodium 149 10/05 preop 146 on 10/12 (7) Right ureteral calculus: Management as above, stent management per urology will need follow-up with urology after discharge CODE STATUS: DNR/DNI, confirmed with patient's mother, and advanced directive on file, and assented at bedside noting patient cognitive status is reduced Total Time Total Time Spent Total Time Spent (In Minutes): It required greater than 30 minutes to prepare this patient for discharge Discharge Plan Discharge Items Patient Disposition: Transfer [facility] Reason For Visit: OBSTRUCTING STONE, PYELONEPHRITIS Discharge Diagnosis: Same Activity: Resume your previous activity Lifting: No more than 50 pounds Non-emergency contact: Primary Care Provider Call non-emergency contact if: you have any medication questions, your symptoms worsen, your pain is not controlled, your pain is worsening, your pain is unusual for you, your pain is concerning for you, you have a fever and your temperature is above 101.5 Follow-up/Referrals: Emiliano Wong [Primary Care Provider] - Diet: Regular Diet Texture: Easy to Chew Diet Comment: needs fed Addtl Attending Provider Instructions: Patient was found an ESBL E. coli which was treated with ertapenem is sensitive to Augmentin. Enterococcus also present sensitive to penicillins. Treated for additional 5 days. Please keep close on urinary retention his Horn catheter was removed at time of discharge. Patient will need to follow-up with urology for stent exchange in the future During her stay the patient had complications of some elevation of her sodium level this is likely definitely related to oral liquid intake. Please keep an eye on her sodium with serology as it is currently unclear what her baseline mental state is best we can tell she may be at her baseline mental state according to family and mother. Pending Studies at Discharge: No Stand-Alone Forms: My [facility] Skilled Items Patient informed of condition?: Yes DNR: Yes Discharge Level of Care: Skilled Communicable Disease: No Discharge Prognosis: Stable Lines: None Urinary Catheter: No Medications and DC Order Prescriptions: New phenazopyridine [Pyridium] 200 mg tablet 200 mg PO Q8H PRN (Reason: pain) Qty: 10 RF: 0 tamsulosin 0.4 mg capsule 0.4 mg PO HS Qty: 30 RF: 0 oxycodone-acetaminophen [Percocet] 7.5-325 mg tablet 1 tab PO Q8H PRN (Reason: pain) Qty: 7 RF: 0 amoxicillin-pot clavulanate 875-125 mg tablet 1 tab PO BID Qty: 10 RF: 0 Continued famotidine 10 mg Tablet 20 mg PO DAILY RF: 0 fluoxetine 10 mg Tablet 10 mg PO DAILY RF: 0 melatonin 3 mg Tablet 3 mg PO HS RF: 0 bisacodyl [Biscolax] 10 mg Suppository 10 mg NE DAILY PRN (Reason: Constipation) RF: 0 bisacodyl [Biscolax] 5 mg Tablet,Delayed Release (Dr/Ec) 10 mg PO DAILY PRN (Reason: Constipation) RF: 0 Calcium + Vitamin D 600 mg calcium- 200 unit Tablet 1 tab PO BID RF: 0 docusate sodium 100 mg Tablet 100 mg PO BID RF: 0 aripiprazole [Abilify] 10 mg Tablet 10 mg PO DAILY RF: 0 lacosamide 100 mg Tablet 100 mg PO BID RF: 0 ondansetron HCl [Zofran] 4 mg Tablet 4 mg PO Q6H PRN (Reason: Nausea) RF: 0 sennosides-docusate sodium [Senna-S] 8.6-50 mg Tablet 1 tab-cap PO BID RF: 0 magnesium hydroxide [Milk of Magnesia] 400 mg/5 mL Suspension 30 ml PO DAILY PRN (Reason: Constipation) RF: 0 polyethylene glycol 3350 [Miralax] 17 gram/dose Powder 17 g PO DAILY RF: 0 mirtazapine 7.5 mg Tablet 7.5 mg PO HS RF: 0 omeprazole 20 mg Tablet,Delayed Release (Dr/Ec) 20 mg PO QAM RF: 0 Discharge Orders: Discharge Order (Routine); Ordered 10/15/21 Ordered By: William Cage Admission Data Admit Date/Time: 10/10/21 18:16 Attending Provider: William Cage Admit Provider: Davy Tyler Primary Care Provider: Emiliano Wong Other Providers: Ji Watts ; Lesley Martini ; Yovanny Tran ; Margarito Aguila ; William Cage ; Shad Saeed ; Brennen Thomas ; Ramiro Mauro ; Emelina Solorzano ; Annamaria Irene ; Danny Livingston ; Cristine Duggan ; Qamar Cervantes ; Steve Pendleton ; Carol Kim ; Candy Edmond ; Chuckie Rashid ; Lesley Quiroga ; Eliseo Fernández ; Jean-Claude Orellana ; Jerrod Khan ; Yovanny Yin ; Leanna Plunkett ; Geni Nelson ; Stanislaw Simeon ; Franca Sanches ; Johan Hawkins ; Rickey Granger ; Nathan Figueroa ; Joshua Saba ; Miguel Diallo Coding Level of Care Code D/C DAY MANAGEMENT >30 MINS Diagnoses Sepsis A41.9 Encephalopathy G93.40 Other seizures G40.89 GERD (gastroesophageal reflux disease) K21.9 Major depressive disorder F32.9 Hyperosmolality and hypernatremia E87.0 Right ureteral calculus N20.1
== END 2021-10-15 14:59 | DRG 659 ==
LOC: ASU 12:04 → 2S 12:04 → SUATTDRO 10-10 18:16 → 2S 10-11 19:38 → 3E 10-13 15:19